=== PATIENT | female | born 1980 | race Caucasian/White ===

== ENCOUNTER 2022-11-13 13:02 | Outpatient (CLI) | payer OTHER, SELFPAY ==
--- NOTE | ~2022-11-13 | CT_ITS ---
EXAMINATION: CT abdomen pelvis w con INDICATION: Pelvic pain TECHNIQUE: Computed tomographic images of the abdomen and pelvis were obtained after the administrati on of 100 cc of Omnipaque 350 intravenous contrast. The dose-length product (DLP) was 388.82 mGy-cm. Automated exposure control and iterative reconstruction technique were employed. COMPARISON: None available FINDINGS: The lung bases are clear. The heart size is normal. Pectus excavatum is noted. The gallblad gunjan is surgically absent. There is mild enlargement of the common bile duct and central intrahepatic ducts which is likely due to post cholecystectomy state. The liver, spleen, pancreas, and adrenal gla nds are normal. The kidneys are unremarkable. No pathologically enlarged abdominal or pelvic lymph no kathie are identified. There is no free intraperitoneal gas or evidence of bowel obstruction. Cysts of t he ovaries, measuring up to 2.7 cm on the left, are within normal limits for a reproductive age femal e. There is a small amount of likely physiologic free fluid in the pelvis. There is mild lumbar spond ylosis at L5-S1. IMPRESSION: 1. No CT correlate for the patient's symptoms. Reviewed, dictated and finalized at location B. OGY PROFESSOR
--- NOTE | ~2022-11-13 | XR_ITS ---
EXAMINATION: XR sacroiliac joints min 3V INDICATION: Sacroiliitis TECHNIQUE: Three views of the sacroiliac joints are obtained. COMPARISON: None available FINDINGS: There is no abnormal sclerosis or erosion of the sacroiliac joints. Bone alignment is neyda l. There is no fracture. Contrast from earlier CT examination partially opacifies the urinary tract.. IMPRESSION: 1. Unremarkable sacroiliac joints. Reviewed, dictated and finalized at location B. AND POULTRY INSPECTOR
--- NOTE | ~2022-11-13 | XR_ITS ---
EXAMINATION: XR lumbar spine 2-3V DATE: 11/13/2022 13:59 INDICATION: Sacroiliitis and low back pain TECHNIQUE: Anteroposterior and lateral views of the lumbar spine, and cone-down lateral view of the l umbosacral junction were obtained. COMPARISON: None. FINDINGS: Bone alignment is normal. There is no fracture. The vertebral body heights and intervertebr al disc space heights are maintained. Small degenerative osteophytes project from the anterior endpla santosh of multiple vertebral bodies. There is mild facet joint osteoarthritis of the lower lumbar spine. Contrast from earlier CT partially opacifies the urinary tract. Cholecystectomy clips are noted. IMPRESSION: 1. Mild lumbar spondylosis without acute findings. Reviewed, dictated and finalized at location B. EMS CHECKOUT MECHANIC
== END 2022-11-13 13:03 ==
LOC: MICIMG 13:05
PROVIDERS: PCP Emergency Medicine; Visit Provider Emergency Medicine
DX: R10.2 Pelvic and perineal pain (principal); M47.896 Other spondylosis, lumbar region
CPT/HCPCS: 72100; 72202; 74177; Q9967

== ENCOUNTER 2023-05-02 04:27 | Day surgery (SDC) | payer OTHER, SELFPAY ==
[2023-04-18 12:34] VITALS: BMI 22.6
[2023-05-02 08:21] VITALS: BP 109/61; PULSE 72; RESP 20; TEMP 36.2; O2SAT 100
[2023-05-02] MEDS: LACTATED RINGERS 1,000 ML 150 ML IV CONT (08:42)
--- NOTE | 2023-05-02 08:53 | P.PNAN_ITS ---
Anes - Initial Pre Proc Eval Procedure: Operation Date: 05/02/23 09:30 Proposed Procedures p Colonoscopy - Pavan Quintanilla MD Date/Time: 05/02/23 08:53 Surgeon: Pavan Quintanilla MD Pre Op Diagnosis: Mixed IBS Patient Data Age: 42 Gender: F Height: 1.63 m Weight: 59.3 kg Last Vital Signs Temp 97.2 F L 05/02/23 08:21 Pulse 72 05/02/23 08:21 Resp 20 05/02/23 08:21 BP 109/61 05/02/23 08:21 Pulse Ox 100 05/02/23 08:21 O2 Del Method Room Air 05/02/23 08:21 Allergies Allergy/AdvReac Type Severity Reaction Status Date / Time thimerosal Allergy Other Verified 05/02/23 08:43 Home Medications Medication Instructions Recorded Confirmed Type alprazolam 0.5 mg tablet 0.5 mg PO BID PRN Anxiety 04/18/23 05/02/23 History bupropion HCl 150 mg 24 hr tablet, 150 mg PO QAM 04/18/23 05/02/23 History extended release dextroamphetamine-amphetamine 20 20 mg PO BID 04/18/23 05/02/23 History mg tablet duloxetine 60 mg capsule,delayed 60 mg PO DAILY 04/18/23 05/02/23 History release (Cymbalta) hydroxychloroquine 200 mg tablet 200 mg PO DAILY 04/18/23 05/02/23 History pregabalin 75 mg capsule 75 mg PO BID 04/18/23 05/02/23 History Patient hx anesthesia problems: none Family hx anesthesia problems: none Results Review: All pre-operative results and documents have been reviewed as part of the pre- operative evaluation. [facility] Social History Social History Smoking status: Never smoker Tobacco type: e-cigarettes/vaping Alcohol intake: current Substance use: former Substance use type: opiates Other substance usage details: Opiate abuse Age 25-Mid 30's Spiritual care concerns: No Anes - Eval Final PreProcedure Day of Procedure 05/02/23 08:53 Patient weight: normal Heart: regular rate and rhythm Lungs: clear to auscultation Airway: Mallampati scale class II Neurological: alert and oriented Last oral intake: >/= 8 hours ASA classification: II Emergent: no Anesthetic plan: proceed Anesthesia type and monitoring: general GIVS and standard monitoring Results Review: All pre-operative results and documents have been reviewed as part of the pre- operative evaluation. Informed Consent: The patient's anesthetic plan and its attendant risks and benefits were discussed with the patient/family/POA. Questions were solicited and answers provided to the satisfaction of the patient/family/POA.
--- NOTE | 2023-05-02 08:54 | PM.HPGS ---
History of Present Illness History of Present Illness Consent: Risks, benefits, and alternatives have been discussed and questions answered. Patient agrees to proceed with procedure. Chief complaint: Mixed IBS Narrative: Chantal Ferrell is a 42 year old female with alternating diarrhea constipation for years, recently diagnosed with SLE. Never had colonoscopy. Review of Systems Constitutional: Constitutional: Denies headache(s) and Denies weakness Eyes: Eyes: Denies blurry vision ENT: Reports Normal hearing present, Denies headache(s) and Denies neck pain Cardiovascular: Cardiovascular: Denies chest pain and Denies dyspnea Respiratory: Respiratory: Denies dyspnea Gastrointestinal: Gastrointestinal: Reports no additional gastrointestinal complaints Genitourinary: Genitourinary: Denies dysuria Musculoskeletal: Musculoskeletal: Denies neck pain Integumentary/Breasts: Skin/Breast: Denies dry skin Neurologic: Reports Normal hearing present, Denies headache(s) and Denies weakness Psychiatric: Psychiatric: Denies anxiety Endocrine: Endocrine: Denies change in body appearance Hematologic/Lymphatic: Hematologic/Lymphatic: Denies easy bleeding Allergic/Immunologic: Allergic/Immunologic: Denies urticaria PMFSH Past Medical History Medical History (Updated 05/02/23 @ 08:55 by Pavan Quintanilla MD) IBS (irritable bowel syndrome) SLE (systemic lupus erythematosus) Social History Social History Smoking status: Never smoker Tobacco type: e-cigarettes/vaping Alcohol intake: current Substance use: former Substance use type: opiates Other substance usage details: Opiate abuse Age 25-Mid 30's Spiritual care concerns: No Meds Home Medications and Allergies Home Medications Medication Instructions Recorded Confirmed Type alprazolam 0.5 mg tablet 0.5 mg PO BID PRN Anxiety 04/18/23 05/02/23 History bupropion HCl 150 mg 24 hr tablet, 150 mg PO QAM 04/18/23 05/02/23 History extended release dextroamphetamine-amphetamine 20 20 mg PO BID 04/18/23 05/02/23 History mg tablet duloxetine 60 mg capsule,delayed 60 mg PO DAILY 04/18/23 05/02/23 History release (Cymbalta) hydroxychloroquine 200 mg tablet 200 mg PO DAILY 04/18/23 05/02/23 History pregabalin 75 mg capsule 75 mg PO BID 04/18/23 05/02/23 History Allergies Allergy/AdvReac Type Severity Reaction Status Date / Time thimerosal Allergy Other Verified 05/02/23 08:43 Vital Signs Vital Signs - 24 hr 05/02/23 08:21 Temperature 97.2 F L Pulse Rate 72 Respiratory Rate 20 Blood Pressure 109/61 Pulse Oximetry 100 Oxygen Delivery Room Air Exam Const: General: comfortable and no acute distress HENMT: Face/Nose/Sinus: Normal nares present Eyes: General: appearance normal, both eyes and all related structures Neck: Neck: no JVD Resp: Auscultation: clear to auscultation bilaterally Cardio: Rate: regular rate Rhythm: regular rhythm GI: Inspection: non-distended GI Palp: Yes Soft to palpation Skin: General skin exam: normal color Neuro: General: gait normal Speech: normal speech Extrem: General: normal to inspection Psych: Mental Status: mental status grossly normal Assessment and Plan Assessment and plan (1) IBS (irritable bowel syndrome): Code(s): K58.9 - Irritable bowel syndrome without diarrhea Status: Acute Assessment and Plan: colonoscopy, consider random colon bx (2) SLE (systemic lupus erythematosus): Code(s): M32.9 - Systemic lupus erythematosus, unspecified Status: Acute
[2023-05-02 09:10] VITALS: BP 97/58; PULSE 73; RESP 16; O2SAT 98
[2023-05-02 09:20] VITALS: BP 95/60; PULSE 68; RESP 23; O2SAT 95
[2023-05-02 09:30] VITALS: BP 104/72; PULSE 68; RESP 16; O2SAT 100
== END 2023-05-02 09:34 | disposition home or self-care (01) ==
PROVIDERS: PCP Emergency Medicine; Visit Provider Internal Medicine Gastroenterology
PROC: 0DJD8ZZ Inspection of Lower Intestinal Tract, Via Natural or Artificial Opening Endoscopic (ICD-10-PCS; CPT 45378; principal; 2023-05-02 09:30)
DX: K58.2 Mixed irritable bowel syndrome (principal); K64.8 Other hemorrhoids; M32.9 Systemic lupus erythematosus, unspecified
CPT/HCPCS: 45380; 88305; J2704; J7120

== ENCOUNTER 2023-07-14 11:06 | Outpatient (CLI) | payer OTHER, SELFPAY ==
[2023-07-14 12:05] LABS: Hemoglobin 11.7 g/dL (12.0-15.0)
== END 2023-07-14 11:07 | disposition home or self-care (01) ==
PROVIDERS: PCP Emergency Medicine; Visit Provider Obstetrics & Gynecology
DX: N94.6 Dysmenorrhea, unspecified (principal); Z01.818 Encounter for other preprocedural examination
CPT/HCPCS: 36415; 85014; 85018; 86850; 86900; 86901

== ENCOUNTER 2023-07-16 01:32 | Day surgery (SDC) | payer OTHER, SELFPAY ==
[2023-07-10 16:43] VITALS: BMI 22.3
--- NOTE | 2023-07-10 16:51 | SUR.PREOP ---
Report to the Outpatient Waiting Room, entrance under the green pavilion located off [facility], at time 0800 on date 07/16/23. Planned Procedure Time: _1000_. Time changes happen often and if your time is changed the preop area will call you the afternoon before. - You and your visitor will be asked to self-screen and do not enter if you have any COVID symptoms. - A mask is optional within the hospital at this time. Patients may have clear liquids (water, carbonated beverages, clear teas, apple juice) until 3 hours prior to surgery with a maximum of 20 ounces. - No food from midnight until time of surgery before 0700 am - Infants may have breast milk until 4 hours before surgery, formula 6 hours prior to surgery. - Children will be allowed to drink immediately following surgery. If applicable, please bring a bottle or sippy cup to assist with drinking. Juice, water, soda, and popsicles are readily available. For infants on formula, please bring formula the day of surgery. Pacifiers are allowed. Take the following medications with a SIP of water the morning of surgery: __Cymbalta and Wellbutrin DO NOT STOP ANY OF YOUR OTHER PRESCRIPTION MEDICATIONS PRIOR TO SURGERY ?EXCEPT THE FOLLOWING Medications to discontinue per physician __hold all other morning meds the day of surgery Date to take last dose Please no make-up, nail azeri, hairspray, perfume, deodorant, or body powder the day of surgery. No jewelry (including any body piercings) or valuables the day of surgery, leave them at home. Please take a shower or bath the night before, or the morning of, surgery with an antibacterial soap. Wear comfortable, loose fitting clothing. Children are encouraged to wear pajamas. - Jewelry must be removed prior to entering the operating room. Rings and piercings that are not removed may be cut off. - The hospital will not accept responsibility for valuables. - Please leave all valuables, including medications, at home the day of surgery. If you are going home after surgery, a licensed driver/guide must drive you home. - NO public transportation without another adult if you receive anesthesia. - We recommend that an adult stay with you for 24 hours following discharge. - We also recommend that you do not drive, make important decision, drink alcoholic beverages, or take any drugs that were not prescribed by your health care provider for at least 24 hours after your discharge time. For Pediatric surgeries, we recommend two adults accompany the child home. Follow any additional instructions given to you from your surgeon. If you or anyone in your household have experienced Covid symptoms in the past week, please notify your surgeon or the nurse liaison at the phone number below for possible testing. Telephone instructions given to _patient__and asked if any additional questions and then verbalized understanding. Patient advised to call surgeon office or pre surgery nurse liaison [phone] if any additional questions.
--- NOTE | 2023-07-15 20:49 | P.PNAN_ITS ---
Anes - Initial Pre Proc Eval Procedure: Operation Date: 07/16/23 10:00 Proposed Procedures p Robotic Assisted Total Vaginal Hysterectomy with Bilateral Salpingectomy - Giuseppe Tenorio MD s Possible Cystocele Repair - Giuseppe Tenorio MD Date/Time: 07/15/23 20:49 Surgeon: Giuseppe Tenorio MD Pre Op Diagnosis: heavy exc bleeding, dyspareunia,dysmenorrhoea, Patient Data Age: 42 Gender: F Height: 1.63 m Weight: 58.97 kg Allergies Allergy/AdvReac Type Severity Reaction Status Date / Time thimerosal Allergy Other Verified 07/16/23 08:50 Home Medications Medication Instructions Recorded Confirmed Type alprazolam 0.5 mg tablet 0.5 mg PO BID PRN Anxiety 04/18/23 07/10/23 History bupropion HCl 150 mg 24 hr tablet, 150 mg PO QAM 04/18/23 07/10/23 History extended release dextroamphetamine-amphetamine 20 20 mg PO BID 04/18/23 07/10/23 History mg tablet duloxetine 60 mg capsule,delayed 60 mg PO DAILY 04/18/23 07/10/23 History release (Cymbalta) hydroxychloroquine 200 mg tablet 200 mg PO BID 04/18/23 07/10/23 History pregabalin 75 mg capsule 75 mg PO BID 04/18/23 07/10/23 History Patient hx anesthesia problems: none Family hx anesthesia problems: none Results Review: All pre-operative results and documents have been reviewed as part of the pre- operative evaluation. [facility] Past Medical History Medical History (Updated 07/15/23 @ 20:50 by Kameron Diaz DO) ADD (attention deficit disorder) Bipolar disorder Depression IBS (irritable bowel syndrome) SLE (systemic lupus erythematosus) Surgical History Surgical History (Updated 07/15/23 @ 20:50 by Kameron Diaz DO) History of tonsillectomy Social History Social History (Updated 07/16/23 @ 09:16 by Kameron Diaz DO) Smoking status: Never smoker Tobacco type: e-cigarettes/vaping Alcohol intake: former Substance use: current Substance use type: marijuana Other substance usage details: Opiate abuse Age 25-Mid 30's Last use: marijuana daily Living arrangements: with family Spiritual care concerns: No Anes - Eval Final PreProcedure Day of Procedure 07/15/23 20:49 Patient weight: normal Heart: regular rate and rhythm Lungs: clear to auscultation Airway: Mallampati scale class II Neurological: alert and oriented Last oral intake: >/= 8 hours ASA classification: III Emergent: no Anesthetic plan: proceed Anesthesia type and monitoring: general ETT and standard monitoring Results Review: All pre-operative results and documents have been reviewed as part of the pre- operative evaluation. Informed Consent: The patient's anesthetic plan and its attendant risks and benefits were discussed with the patient/family/POA. Questions were solicited and answers provided to the satisfaction of the patient/family/POA.
[2023-07-16] VITALS (12 sets, daily range): BP systolic 102–148; BP diastolic 57–83; PULSE 59–77; RESP 12–18; TEMP 36.2–36.8; O2SAT 99–100; BMI 21.8
[2023-07-16] MEDS: LACTATED RINGERS 1,000 ML 30 ML IV CONT ×2 (08:36→12:58)
[2023-07-16] MEDS: ACETAMINOPHEN 500 MG TABLET 1000 MG PO (08:36)
[2023-07-16] MEDS: KETOROLAC 15 MG/ML VIAL (*BKC) IV PUSH (08:37)
--- NOTE | 2023-07-16 10:00 | SUR.PREOP ---
1000- Notified patient and boyfriendSrinivas procedure start time will be delayed. Patient verbalized understanding and denying needs at this time.
--- NOTE | 2023-07-16 10:35 | PM.IMHP ---
H&P: HPI History of Present Illness Date/Time: 07/16/23 10:35 Chief Complaint: Here for hysterectomy. Narrative: 42 y/o with heavy, painful menses. She is here for definitive management with hysterectomy. Also, she often will Valsalva to empty her bladder fully. She has been referred for pelvic floor physical therapy. Review of Systems Review of Systems: All systems reviewed & are unremarkable except as noted in HPI and below PMFSH Past Medical History Medical History ADD (attention deficit disorder) Bipolar disorder Depression IBS (irritable bowel syndrome) SLE (systemic lupus erythematosus) Surgical History Surgical History History of delivery History of cholecystectomy History of tonsillectomy Social History Social History Smoking status: Never smoker Tobacco type: e-cigarettes/vaping Alcohol intake: former Substance use: current Substance use type: marijuana Other substance usage details: Opiate abuse Age 25-Mid 30's Last use: marijuana daily Living arrangements: with family Spiritual care concerns: No Meds Home Medications and Allergies Home Medications Medication Instructions Recorded Confirmed Type alprazolam 0.5 mg tablet 0.5 mg PO BID PRN Anxiety 04/18/23 07/10/23 History bupropion HCl 150 mg 24 hr tablet, 150 mg PO QAM 04/18/23 07/10/23 History extended release dextroamphetamine-amphetamine 20 20 mg PO BID 04/18/23 07/10/23 History mg tablet duloxetine 60 mg capsule,delayed 60 mg PO DAILY 04/18/23 07/10/23 History release (Cymbalta) hydroxychloroquine 200 mg tablet 200 mg PO BID 04/18/23 07/10/23 History pregabalin 75 mg capsule 75 mg PO BID 04/18/23 07/10/23 History Allergies Allergy/AdvReac Type Severity Reaction Status Date / Time thimerosal Allergy Other Verified 07/16/23 08:50 Vital Signs Vital Signs - 24 hr 07/16/23 09:00 Temperature 36.7 C Pulse Rate 72 Respiratory Rate 16 Blood Pressure 102/60 Pulse Oximetry 100 Oxygen Delivery Room Air Exam Const: Orientation/consciousness: patient oriented x3 Other: Well-developed, well-nourished female in no acute distress. Neck: Thyroid: thyroid normal Lymphatic: no lymphadenopathy noted (in neck, axilla or inguinal nodes) Resp: Effort & Inspection: normal respiratory effort Auscultation: clear to auscultation bilaterally Cardio: Rate: regular rate Rhythm: regular rhythm Heart sounds: S1 normal heart sound present and S2 normal heart sound present GI: Other: ABD: Soft, nontender, nondistended. No guarding or rebound tenderness. No hepatosplenomegaly. : General: Yes no CVA tenderness Other: External genitalia: normal female hair distribution, without lesion. Urethral meatus: no lesion, non prolapsed. Bladder: no mass, nontender Vagina: well-estrogenized, without lesion or discharge. There is a first degree cystocele and first degree uterine prolapse. No significant rectocele. Cervix: no lesion or discharge. Uterus: small, anteverted, freely mobile, nontender Adnexa: no mass or tenderness. Anus/perineum: no lesions, nontender Back/Spine/Pelvis: Back: no CVA tenderness Skin: General skin exam: normal color and no rashes or lesions noted Neuro: General: patient oriented x3 Extrem: Other: Extremities: nontender with no edema Psych: Mental Status: mental status grossly normal Affect: normal affect Assessment and Plan Assessment and plan (1) Menometrorrhagia: Code(s): N92.1 - Excessive and frequent menstruation with irregular cycle Status: Acute Assessment and Plan: A: Menometrorrhagia with dysmenorrhea, with a first degree cystocele. P: We have reviewed medical as well as surgical treatment options, and she prefers the latter. Specifically, I have
--- NOTE | 2023-07-16 10:42 | WPDHPUPDATE1 ---
History and Physical Update Update Date/Time: 07/16/23 10:42 History and Physical has been reviewed, including an updated exam of the patient. There are NO changes in the patient's condition. Risks, benefits, and alternatives have been discussed and questions answered. Patient agrees to proceed with procedure.
[2023-07-16] MEDS: ceFAZolin 2 GM/D5W 50 ML 2 GM/50 ML BAG IVPB (11:02)
--- NOTE | 2023-07-16 12:51 | W.PM.PROC2 ---
Procedure Note - Detailed Date of Procedure 07/16/23 Pre-op Diagnosis Dysmenorrhea Menometrorrhagia Post-op Diagnosis Same Procedure Performed Robotic assisted total vaginal hysterectomy with bilateral salpingectomies, right oophorectomy. Surgeon Giuseppe Tenorio MD Anesthesia General Findings Adhesions between bladder and anterior serosa of the uterus. Uterus otherwise normal-appearing. Bilateral ovaries, Fallopian tubes unremarkable. Vermiform appendix normal-appearing. Apparent endometriosis implants noted on the peritoneal surface of the posterior cul-de-sac, bilateral pelvic sidewalls. On vaginal exam a first degree uterine prolapse and cystocele were noted at the start of the procedure. After the hysterectomy, the vaginal cuff was well-supported, and the cystocele was not appreciated. Description of Procedure The patient was taken to the operating room where general endotracheal anesthesia was administered. She was prepared and draped in the usual sterile fashion in the dorsal lithotomy position. The bladder was drained with Lake catheter. The cervix was visualized and the anterior lip was grasped using a single-tooth tenaculum. The cervix was gently dilated using Hegar dilators. The CAITY 2 uterine manipulator was then placed and the tenaculum was removed. Gloves were changed and attention was turned to the abdomen. A supraumbilical skin incision was made with the scalpel. The Veress needle was advanced and pneumoperitoneum was administered using carbon dioxide gas. The bladeless trocar was then advanced. Intraperitoneal placement was confirmed using the laparoscope. Lateral ports and an political science research assistant port were all placed using bladeless trocars under direct laparoscopic visualization. She was placed in Trendelenburg position and the patient cart was docked. I assumed the console. The ureters were visualized bilaterally. The round ligament on the right was divided. The Fallopian tube was dissected off the ovary, and the uteroovarian ligament was divided. The broad ligament was divided, skeletonizing the uterine artery on the right. The bladder was reflected away. The left side was similarly dissected. Colpotomy was performed circumferentially. The specimen was removed and passed off to be sent to pathology. On inspection, the right ovary did not show satisfactory hemostasis, so the decision was made to remove it. The infundibulopelvic ligament was divided and the ovary was passed off the field. The vaginal cuff was reapproximated using 0 Vicryl in interrupted [id number] fashion. Endometriosis implants were cauterized. The pelvis was irrigated copiously using warmed normal saline. Rigorous hemostasis was assured. Vermiculation of the ureters bilaterally was observed. HemaDerm was applied to the vaginal cuff. The pedicles were inspected once again. The ports were then withdrawn and the gas was allowed to escape. The skin incisions were reapproximated using 4 0 Monocryl in interrupted subcuticular fashion. Dermaflex was applied externally. Attention was redirected to the vagina, where findings were as noted above. As a significant cystocele was not appreciated, anterior colporrhaphy was not undertaken. Sponge, lap, needle and instrument counts were correct. The patient was awakened and taken to the recovery room in stable condition. I was present and scrubbed through the entire procedure. Estimated Blood Loss 50 Drains Yes (Lake) Pathology Yes (Uterus, cervix, bilateral Fallopian tubes, right ovary) Complications None Condition Stable Disposition PACU
--- NOTE | 2023-07-16 13:00 | PM.DS ---
DS: Admitting Diagnosis Discharge Date 07/17/23 Admitting Diagnosis Menometrorrhagia Dysmenorrhea Pelvic organ prolapse DS: Discharge Diagnosis Discharge Diagnosis (1) Dysmenorrhea: Code(s): N94.6 - Dysmenorrhea, unspecified Status: Acute (2) Menometrorrhagia: Code(s): N92.1 - Excessive and frequent menstruation with irregular cycle Status: Acute (3) Pelvic prolapse: Code(s): N81.9 - Female genital prolapse, unspecified Status: Acute DS: Summary Hospital Course Hospital Course: She was admitted on the date of scheduled surgery. Please see the op note for details. She underwent robotic TVHBS with right oophorectomy. Postoperatively she did well and was able to go home on POD1. Time Spent with Patient Time attestation: Total time spent providing and/or coordinating discharge services: DS: Data Data Completed and Pending Pending studies at discharge: Pending at discharge 07/16/23 12:22 Surgical [PTH] Routine Discharge Plan Discharge Patient Disposition: Home, Self-Care Discharge Instructions: Nothing in the vagina for 6 weeks. Call or return if temperature above 100.4? F, increased abdominal pain, increased vaginal bleeding or any new problems. Patient Instructions: Laparoscopic Hysterectomy (DC), Pain Management After Surgery (DC) Stand Alone Forms: General Discharge Instructions Follow-up/Referrals: Giuseppe Tenorio MD [Physician] - 2 Weeks Discharge Medications: New tramadol-acetaminophen 37.5-325 mg tablet 1 tablet PO Q4-6H PRN (Reason: pain) 5 Days Qty: 30 0RF Continued alprazolam 0.5 mg Tablet 0.5 mg PO BID PRN (Reason: Anxiety) dextroamphetamine-amphetamine 20 mg tablet 20 mg PO BID hydroxychloroquine 200 mg Tablet 200 mg PO BID bupropion HCl 150 mg Tablet Extended Release 24 Hr 150 mg PO QAM duloxetine [Cymbalta] 60 mg Capsule,Delayed Release(Dr/Ec) 60 mg PO DAILY pregabalin 75 mg Capsule 75 mg PO BID
[2023-07-16] MEDS: fentaNYL CITRATE INJ (*CRX) 100 MCG/2 ML VIAL 25 MCG IV PUSH ×4 (13:14→13:24)
--- NOTE | 2023-07-16 14:51 | PC.NURSE ---
PT arrived on unit via bed accompanied by significant other and taken to room 279. PT introductions made and plan of care discussed per post op pari mutuel ticket cashier surgery, pain management, daily care activities. PT and significant other both recipients of such instructions and no barriers to learning identified at this time. PT received such instructions per one to one discussion and demonstrations. PT verbalized understanding of such care.
[2023-07-16] MEDS: DEXTROSE 5%/0.45% SOD CHL 1,000 ML 125 ML IV CONT (15:47)
[2023-07-16] MEDS: SIMETHICONE 80 MG TAB.CHEW PO ×2 (15:47→20:50)
[2023-07-16] MEDS: traMADol/ACETAMINOPHEN (*CRX) (ULTRACET) 37.5/325 MG TABLET 2 TAB PO ×2 (16:33→20:50)
[2023-07-16] MEDS: KETOROLAC 30 MG/ML VIAL (*BKC) IV PUSH (16:35)
[2023-07-16] MEDS: HYDROXYCHLOROQUINE SULFATE 200 MG TABLET PO (18:02)
[2023-07-16] MEDS: PREGABALIN (*CRX) 75 MG CAPSULE PO (18:02)
[2023-07-16] MEDS: DOCUSATE SODIUM 100 MG CAPSULE PO (18:02)
[2023-07-16] MEDS: ALPRAZolam (*CRX) 0.5 MG TABLET PO (20:50)
[2023-07-16] MEDS: ENOXAPARIN 40 MG/0.4 ML SYRINGE SUB-Q (20:50)
[2023-07-17] MEDS: traMADol/ACETAMINOPHEN (*CRX) (ULTRACET) 37.5/325 MG TABLET 2 TAB PO ×2 (04:17→09:28)
[2023-07-17] MEDS: IBUPROFEN 600 MG TABLET PO (04:17)
[2023-07-17 04:20] VITALS: BP 109/66; PULSE 69; RESP 18; TEMP 36.8; O2SAT 99
[2023-07-17 07:08] LABS: Basophils Absolute Auto 0.1 K/mm3 (0.0-0.1); Eosinophils Absolute Auto 0.2 K/mm3 (0-0.3); Hematocrit 35.2 % (37.0-47.0); Hemoglobin 11.4 g/dL (12.0-15.0); Immature Granulocyte Absolute 0.03 K/mm3 (0.00-0.031); Immature Granulocyte Percent A 0.3 % (0-0.5); Lymphocytes Absolute Auto 1.64 K/mm3 (0.9-3.2); Lymphocytes Percent Auto 18.3 % (18.3-44.2); Mean Corpuscular HGB Conc 32.4 g/dl (32-36); Mean Corpuscular Hemoglobin 31.1 pg (26-34); Mean Corpuscular Volume 96.2 fl (80-100); Mean Platelet Volume 9.4 fl (7.4-10.4); Monocytes Absolute Auto 0.8 K/mm3 (0.1-0.6); Monocytes Percent Auto 8.7 % (2.6-8.5); Neutrophils Absolute Auto 6.3 K/mm3 (1.3-6.7); Neutrophils Percent Auto 69.7 % (45.5-73.1); Platelet Count Result 337 k/mm3 (150-375); Red Blood Count 3.66 M/mm3 (4.2-5.4); Red Cell Distribution Width 12.8 % (11.5-14.5)
[2023-07-17 07:35] VITALS: BP 90/54; PULSE 67; RESP 16; TEMP 37.6; O2SAT 97
--- NOTE | 2023-07-17 09:00 | PC.NURSE ---
PT introductions made and plan of car discussed per post op storage specialist surgery, pain management, daily care activities and pending discharge to home. PT sole recipient of such instructions and no barriers to learning identified at this time. Pt received such instructions per one to one discussion and demonstrations. PT verbalized understanding of such care.
--- NOTE | 2023-07-17 09:00 | PM.GYNPNOP ---
SPECIALIZED LANGUAGE INSTRUCTOR - A/P Assessment and plan (1) Pelvic prolapse: Code(s): N81.9 - Female genital prolapse, unspecified Status: Acute Assessment and Plan: A: POD#1, s/p robotic assisted TVHBS with right oophorectomy, doing well. P: Home to f/u 2 weeks. (2) Dysmenorrhea: Code(s): N94.6 - Dysmenorrhea, unspecified Status: Acute (3) Menometrorrhagia: Code(s): N92.1 - Excessive and frequent menstruation with irregular cycle Status: Acute Postoperative Procedures: Procedures Operation Date: 07/16/23 10:00 Actual Procedure Side Surgeon p Robotic Assisted Total Vaginal Hysterectomy with Bilateral Salpingectomy, Right Oophorectomy Giuseppe Tenorio MD Time Spent With Patient Time with patient: less than 15 minutes SPECIALIZED LANGUAGE INSTRUCTOR- PN:Subj Post-Op Subjective Date/time seen: 07/17/23 09:00 Interval history: Pain OK. Tolerating diet. Voiding. Would like to go home. Exam Narrative: AVSS I/O OK ABD soft, nontender. Incisions c/d/i. EXT nontender SPECIALIZED LANGUAGE INSTRUCTOR - PN: Obj Data Vital Signs Vital Signs: Vital Signs - 24 hr 07/16/23 12:58 07/16/23 13:05 07/16/23 13:20 Temperature 36.2 C L Pulse Rate 77 74 69 Respiratory Rate 14 14 14 Blood Pressure 148/78 H 144/83 H 120/67 Pulse Oximetry 100 100 100 Oxygen Delivery Simple Face Mask Simple Face Mask Simple Face Mask Oxygen Flow Rate 8 8 8 07/16/23 13:30 07/16/23 13:45 07/16/23 14:00 Temperature Pulse Rate 75 68 71 Respiratory Rate 14 14 18 Blood Pressure 112/64 102/59 L 103/66 Pulse Oximetry 100 100 100 Oxygen Delivery Room Air Room Air Room Air Oxygen Flow Rate 07/16/23 14:15 07/16/23 14:30 07/16/23 15:30 Temperature 36.8 C Pulse Rate 64 67 59 L Respiratory Rate 12 12 16 Blood Pressure 108/71 103/68 109/57 L Pulse Oximetry 99 100 100 Oxygen Delivery Room Air Room Air Oxygen Flow Rate 07/16/23 15:30 07/16/23 19:30 07/16/23 19:30 Temperature 36.8 C Pulse Rate 59 L 72 Respiratory Rate 16 18 Blood Pressure 110/65 Pulse Oximetry 100 Oxygen Delivery Room Air Room Air Oxygen Flow Rate 07/16/23 23:38 07/16/23 23:38 07/17/23 04:20 Temperature 36.6 C 36.8 C Pulse Rate 61 69 Respiratory Rate 18 18 Blood Pressure 105/68 109/66 Pulse Oximetry 100 99 Oxygen Delivery Room Air Oxygen Flow Rate 07/17/23 04:20 Temperature Pulse Rate Respiratory Rate Blood Pressure Pulse Oximetry Oxygen Delivery Room Air Oxygen Flow Rate Intake/Output Intake/Output: Intake & Output 07/14/23 07/15/23 07/16/23 07/17/23 23:59 23:59 23:59 23:59 Intake Total 980 Output Total 1025 Balance -45 Meds/Results Medications: Active Medications Generic Name Dose Route Start Last Admin Trade Name Freq PRN Reason Stop Dose Admin Alprazolam 0.5 mg 07/16/23 14:54 07/16/23 20:50 Alprazolam (*Crx) 0.5 Mg Tablet PO 0.5 mg BID PRN Administration Anxiety Bupropion HCl 150 mg 07/17/23 09:00 Bupropion Hcl Xl (24 Hr) 150 Mg Tabcr PO QAM SHANTELL Docusate Sodium 100 mg 07/16/23 17:00 07/16/23 18:02 Docusate Sodium 100 Mg Capsule PO 100 mg BID SHANTELL Administration Duloxetine HCl 60 mg 07/17/23 09:00 Duloxetine Hcl 60 Mg Capsule.Dr PO DAILY SHANTELL Enoxaparin Sodium 40 mg 07/16/23 21:00 07/16/23 20:50 Enoxaparin 40 Mg/0.4 Ml Syringe SUB-Q 40 mg DAILY@2100 SHANTELL Administration Hydroxychloroquine Sulfate 200 mg 07/16/23 17:00 07/16/23 18:02 Hydroxychloroquine Sulfate 200 Mg Tablet PO 200 mg BID SHANTELL Administration Ibuprofen 600 mg 07/16/23 14:54 07/17/23 04:17 Ibuprofen 600 Mg Tablet PO 600 mg Q6H PRN Administration Cramping Ketorolac Tromethamine 30 mg 07/16/23 15:52 07/16/23 16:35 Ketorolac 30 Mg/Ml Vial (*Bkc) IV PUSH 30 mg Q6H PRN Administration Pain Rated 4-6 Metoclopramide HCl 10 mg 07/16/23 14:54 Metoclopramide Hcl Inj 10 Mg/2 Ml Vial IV PUSH Q6H PRN Nausea
[2023-07-17 09:25] VITALS: PULSE 67; RESP 16; O2SAT 97
[2023-07-17] MEDS: HYDROXYCHLOROQUINE SULFATE 200 MG TABLET PO (09:27)
[2023-07-17] MEDS: SIMETHICONE 80 MG TAB.CHEW PO (09:28)
[2023-07-17] MEDS: buPROPion HCL XL (24 HR) 150 MG TABCR PO (09:28)
[2023-07-17] MEDS: ALPRAZolam (*CRX) 0.5 MG TABLET PO (09:28)
[2023-07-17] MEDS: DULoxetine HCL 60 MG CAPSULE.DR PO (09:29)
[2023-07-17] MEDS: PREGABALIN (*CRX) 75 MG CAPSULE PO (09:29)
[2023-07-17] MEDS: DOCUSATE SODIUM 100 MG CAPSULE PO (09:29)
--- NOTE | 2023-07-17 10:45 | PC.NURSE ---
PT received discharge instructions per protocol and verbalized understanding of such care.
--- NOTE | 2023-07-17 10:57 | PC.NURSE ---
PT discharged to home ambulatory accompanied by spouse and taken to waiting car, Follow up appts confirmed
== END 2023-07-17 10:57 | disposition home or self-care (01) ==
LOC: ANHSURGERY 13:02 → ANHOB2 19:42
PROVIDERS: PCP Emergency Medicine; Visit Provider Obstetrics & Gynecology
PROC: (CPT 58552; principal; 2023-07-16 10:00)
DX: N80.329 Endometriosis of the posterior cul-de-sac, unspecified depth (principal); N80.353 Endometriosis of bilateral pelvic sidewall, unspecified depth; N80.00 Endometriosis of the uterus, unspecified; N80.201 Endometriosis of right fallopian tube, unspecified depth; N81.2 Incomplete uterovaginal prolapse; N73.6 Female pelvic peritoneal adhesions (postinfective); N92.1 Excessive and frequent menstruation with irregular cycle; N94.6 Dysmenorrhea, unspecified; N80.03 Adenomyosis of the uterus; F98.8 Other specified behavioral and emotional disorders with onset usually occurring in childhood and adolescence; M32.9 Systemic lupus erythematosus, unspecified; F31.9 Bipolar disorder, unspecified; F12.90 Cannabis use, unspecified, uncomplicated; Z87.891 Personal history of nicotine dependence
CPT/HCPCS: 58552; S2900; 36415; 85014; 85018; 85025; 86850; 86900; 86901; 88307; 99199; A9270; J0690; J1100; J1650; J1885; J2250; J2405; J2704; J3010; J7030; J7120

== ENCOUNTER 2024-02-18 12:06 | Emergency (ER) | payer SELFPAY ==
[2024-02-18 12:11] VITALS: BP 131/88; PULSE 100; RESP 16; TEMP 36.6; O2SAT 100
[2024-02-18 13:06] LABS: Basophils Absolute Auto 0.1 K/mm3 (0.0-0.1); Basophils Percent Auto 1.4 % (0.2-1.2); Eosinophils Absolute Auto 0.3 K/mm3 (0-0.3); Eosinophils Percent Auto 5.9 % (0-4.4); Hematocrit 37.6 % (37.0-47.0); Hemoglobin 12.9 g/dL (12.0-15.0); Immature Granulocyte Absolute 0.01 K/mm3 (0.00-0.031); Immature Granulocyte Percent A 0.2 % (0-0.5); Lymphocytes Absolute Auto 1.67 K/mm3 (0.9-3.2); Lymphocytes Percent Auto 33.7 % (18.3-44.2); Mean Corpuscular HGB Conc 34.3 g/dl (32-36); Mean Corpuscular Volume 90.4 fl (80-100); Mean Platelet Volume 9.2 fl (7.4-10.4); Monocytes Absolute Auto 0.5 K/mm3 (0.1-0.6); Monocytes Percent Auto 9.5 % (2.6-8.5); Neutrophils Absolute Auto 2.4 K/mm3 (1.3-6.7); Neutrophils Percent Auto 49.3 % (45.5-73.1); Platelet Count Result 336 k/mm3 (150-375); Red Blood Count 4.16 M/mm3 (4.2-5.4); Red Cell Distribution Width 11.9 % (11.5-14.5)
[2024-02-18 13:16] LABS: Alanine Aminotransferase 28 U/L (6-35); Albumin Level 4.3 g/dL (3.5-5.1); Alkaline Phosphatase 53 U/L (38-126); Anion Gap 4 mmol/L (4-12); Aspartate Amino Transferase 36 U/L (14-36); Bilirubin,Total 0.4 mg/dL (0.2-1.3); Blood Urea Nitrogen 12 mg/dL (7-17); Calcium 9.4 mg/dL (8.4-10.2); Carbon Dioxide 28 mmol/L (22-30); Chloride 104 mmol/L (98-107); Estimated CRCL calculation 87 ml/min; Estimated Glomerular Filt Rate > 60; Glucose 102 mg/dL (65-110); Lipase 238 U/L (23-300); Potassium 3.8 mmol/L (3.4-5.0); Sodium 136 mmol/L (137-145)
[2024-02-18] MEDS: SODIUM CHLORIDE 0.9% IV 1,000 ML 999 ML IV CONT (13:43)
[2024-02-18 13:45] VITALS: BP 111/79; PULSE 79; RESP 14; O2SAT 98
--- NOTE | 2024-02-18 13:46 | ED.GENADULT ---
HPI - General Adult General Chief complaint: Anxiety Stated complaint: multiple complaints Time Seen by Provider: 02/18/24 12:09 History of Present Illness HPI narrative: Patient 43 y/o female who presents to the ER with concerns for having a intestinal parasite. Her stools contained stringy substances that she thinks may be life assurance representative of a parasite. She reports 10 lb weight loss over last several months. Patient has a lot of anxiety at baseline but also has anxiety about this. She denies any fevers or chills or sweats. No abdominal pain. She has been scheduled for an outpatient stool study and she was supposed to do 1 today after they were closed last week when she provide does provide a sample. She then opted to come here instead. Related Data Home Medications Medication Instructions Recorded Confirmed alprazolam 0.5 mg tablet 0.5 mg PO BID PRN Anxiety 04/18/23 07/10/23 bupropion HCl 150 mg 24 hr tablet, 150 mg PO QAM 04/18/23 07/10/23 extended release dextroamphetamine-amphetamine 20 20 mg PO BID 04/18/23 07/10/23 mg tablet duloxetine 60 mg capsule,delayed 60 mg PO DAILY 04/18/23 07/10/23 release (Cymbalta) hydroxychloroquine 200 mg tablet 200 mg PO BID 04/18/23 07/10/23 pregabalin 75 mg capsule 75 mg PO BID 04/18/23 07/10/23 Allergies Allergy/AdvReac Type Severity Reaction Status Date / Time thimerosal Allergy Other Verified 07/16/23 08:50 Review of Systems Review of Systems: All systems reviewed & are unremarkable except as noted in HPI and below Constitutional: Constitutional: Reports no additional constitutional complaints ENT: Reports system reviewed and no additional complaints, except as documented Cardiovascular: Cardiovascular: Reports no additional cardiovascular complaints Respiratory: Respiratory: Reports no additional respiratory complaints Gastrointestinal: Gastrointestinal: Denies abdominal pain, Denies constipation, Denies diarrhea, Denies nausea and Denies vomiting Comments: stringy substances in stool Integumentary/Breasts: Skin/Breast: Reports system reviewed and no additional complaints, except as docu Psychiatric: Psychiatric: Reports anxiety and Denies depression PMFSH Past Medical History Medical History ADD (attention deficit disorder) Bipolar disorder Depression IBS (irritable bowel syndrome) SLE (systemic lupus erythematosus) Surgical History Surgical History History of delivery History of cholecystectomy History of tonsillectomy Social History Social History Smoking status: Never smoker Tobacco type: e-cigarettes/vaping Alcohol intake: former Substance use: current Substance use type: marijuana Other substance usage details: Opiate abuse Age 26-Mid 30's Last use: marijuana daily Living arrangements: with family Spiritual care concerns: No Exam Narrative: GENERAL: Anxious-appearing, well-nourished, and in no acute distress. HEAD: Normocephalic, atraumatic. ENT: Mucous membranes moist. NECK: Supple. CHEST: Clear to auscultation. No respiratory distress. HEART: Regular rate and rhythm. Normal peripheral pulses. ABDOMEN: Soft, nontender, nondistended. EXTREMITIES: Normal range of motion. No edema. SKIN: Warm, dry, no rash. NEURO: Alert and oriented x3. PSYCH: Patient is very anxious, unsure if these or delusions of parasites in her stool. Denies illicit drug use. Patient with pressured speech. Course Course Emergency Course: Unable to provided bowel movement. She does have outpatient orders for stool studies which she can do on her own. She will be discharged at this time with no unremarkable workup. Vital Signs Vital signs: Vital Signs Temperature 97.8 F 02/18/24 12:11 Pulse Rate 100 02/18/24 12:11 Respiratory Rate 16
[2024-02-18 13:52] LABS: Appearance Urine Clear (Clear); Bacteria Urine None Seen /hpf; Bilirubin Urine Negative (Negative); Blood Urine Non-Hemolyzed Trace (Negative); Color Urine Yellow (Yellow); Glucose Urine UA Negative (Negative); Ketones Urine Negative (Negative); Leukocyte Esterase Ur Negative LEU/UL (Negative); Nitrate Urine Negative (Negative); Non Pathogenic Casts 0-2; Protein Urine Negative (Negative); Specific Grav Ur 1.015 (1.001-1.035); Squamous Epithelial Cell Urine None Seen /hpf (Few); Urobilinogen Urine 0.2 mg/dL (<2.0); WBC Urine 0-5 /hpf (0-3)
[2024-02-18 13:54] LABS: Add Urine Microscopic? YES
[2024-02-18 14:45] VITALS: BP 102/63; PULSE 85; RESP 15; O2SAT 100
[2024-02-18 15:45] VITALS: BP 126/73; PULSE 96; RESP 12; O2SAT 99
[2024-02-18 16:53] VITALS: BP 115/68; PULSE 77; RESP 20; O2SAT 99
== END 2024-02-18 16:55 | disposition home or self-care (01) ==
PROVIDERS: Emergency Provider Emergency Medicine; PCP Emergency Medicine
DX: F41.9 Anxiety disorder, unspecified (principal); Z90.49 Acquired absence of other specified parts of digestive tract; M32.9 Systemic lupus erythematosus, unspecified; K58.9 Irritable bowel syndrome, unspecified; F98.8 Other specified behavioral and emotional disorders with onset usually occurring in childhood and adolescence; F31.9 Bipolar disorder, unspecified; F40.218 Other animal type phobia
CPT/HCPCS: 36415; 80053; 81001; 83690; 85025; 96360; 99283; J7030

== ENCOUNTER 2024-11-13 12:59 | Emergency (ER) | payer BC, SELFPAY ==
--- NOTE | ~2024-11-13 | CT_ITS ---
CT brain wo con Ordering provider: Jessica Hunter PA-C History: 44 years Female with . weakness . Comparison: None. Technique: CT of the head without contrast. Radiation reduction technique utilized. The dose-length product was 605.33 mGy-cm. Him FINDINGS: BRAIN PARENCHYMA AND CSF SPACES: No midline shift, mass effect or hemorrhage. The brain parenchyma a nd CSF spaces are otherwise normal. VISUALIZED PARANASAL SINUSES: Well aerated. MASTOIDS: Well aerated. BONES: The bones appear intact. SOFT TISSUES: Visualized nasopharynx is normal. Superficial soft tissues are normal. IMPRESSION: No acute intracranial findings. Reviewed, dictated and finalized at location A. [facility]
[2024-11-13 13:52] VITALS: BP 148/104; PULSE 118; RESP 20; TEMP 36.7; O2SAT 99
--- NOTE | 2024-11-13 16:42 | ED_ITS ---
HPI - Psych General Chief Complaint: Psychiatric Symptoms <Jessica Hunter PA-C - Last Filed: 11/14/24 16:31> Stated Complaint: NEEDS MENTAL HEALTH ASSISTANCE <Jessica Hunter PA-C - Last Filed: 11/14/24 16:31> Time Seen by Provider: 11/13/24 16:42 <Jessica Hunter PA-C - Last Filed: 11/14/24 16:31> Focused HPI: This is a 44 year old female that presents to the ER for psychiatric help. Reports she has been struggling to eat and drink. She is having difficulty swallowing. She has lost a lot of weight. Reports her committed suicide last June. She has history of anorexia. Reports she is weak. Reports she feels like she is slipping in and out of reality. Reports she is having severe panic attacks and anxiety. She is worried she may hurt herself. GENERAL: Anxious, tearful HEAD: Normocephalic, atraumatic. CHEST: Clear to auscultation. ?No respiratory distress. HEART: Regular rate and rhythm.? NEURO: ?Alert and oriented x3. Patient screened in triage and initial orders placed.? ?Additional care and disposition to be based upon?diagnostic testing and treatment. <Jessica Hunter PA-C - Last Filed: 11/14/24 16:31> History of Present Illness HPI Narrative: I agree with the above HPI 44-year-old female present to the emergency department for evaluation for increased anxiety depression and decreased appetite. Patient did recently start Lexapro yesterday. <Eldon Serrano MD - Last Filed: 11/14/24 06:52> Related Data Home Medications: Home Medications ?Medication ?Instructions ?Recorded ?Confirmed ?Last Taken ?Type alprazolam 0.5 mg tablet 0.5 mg PO BID PRN Anxiety 04/18/23 07/10/23 05/01/23 History bupropion HCl 150 mg 24 hr tablet, 150 mg PO QAM 04/18/23 07/10/23 05/01/23 History extended release dextroamphetamine-amphetamine 20 20 mg PO BID 04/18/23 07/10/23 05/01/23 History mg tablet duloxetine 60 mg capsule,delayed 60 mg PO DAILY 04/18/23 07/10/23 05/01/23 History release (Cymbalta) hydroxychloroquine 200 mg tablet 200 mg PO BID 04/18/23 07/10/23 05/01/23 History pregabalin 75 mg capsule 75 mg PO BID 04/18/23 07/10/23 05/01/23 History <Jessica Hunter PA-C - Last Filed: 11/14/24 16:31> Allergies/Adverse Reactions: Allergies Allergy/AdvReac Type Severity Reaction Status Date / Time thimerosal Allergy Other Verified 07/16/23 08:50 <Jessica Hunter PA-C - Last Filed: 11/14/24 16:31> Review of Systems 2 Review of Systems: All systems reviewed & are unremarkable except as noted in HPI and below <Eldon Serrano MD - Last Filed: 11/14/24 06:52> PMFSH Past Medical History Medical History: Medical History ADD (attention deficit disorder) Bipolar disorder Depression IBS (irritable bowel syndrome) SLE (systemic lupus erythematosus) <Jessica Hunter PA-C - Last Filed: 11/14/24 16:31> Surgical History Surgical History: Surgical History History of delivery History of cholecystectomy History of tonsillectomy <Jessica Hunter PA-C - Last Filed: 11/14/24 16:31> Social History Social History: Social History Smoking status: Never smoker Tobacco type: e-cigarettes/vaping Alcohol intake: former Substance use: current Substance use type: marijuana Other substance usage details: Opiate abuse Age 26-Mid 30's Last use: marijuana daily Living arrangements: with family Spiritual care concerns: No <Jessica Hunter PA-C - Last Filed: 11/14/24 16:31> Exam 2 Narrative: APPEARANCE: Well appearing, no pain, no distress, well-nourished. HEAD: normocephalic, atraumatic. EYES: PERRLA/EOMI, conjunctivae clear. NOSE: Normal no drainage EARS:TMS clear with good light reflex. THROAT: Pharynx clear, no exudate. NECK: Supple. No adenopathy, no masses. RESPIRATORY: Airway patent, respirations nonlabored. Clear to auscultation bilaterally, no rales, rhonchi, wheezing. CARDIOVASCULAR: Regular rate and rhythm without murmurs rubs or gallops. ABDOMINAL: Soft, nontender, nondistended, normal bowel sounds MUSCULOSKELETAL: Moves all extremities. Strength/ROM intact, No edema, No calf tenderness. NEURO: Alert. Cranial nerves II through XII intact. Good gait. Good coordination SKIN: Warm, dry. Normal Color Psych: Tearful affect <Eldon eSrrano MD - Last Filed: 11/14/24 06:52> Course Vital Signs Vital signs: Vital Signs Temperature 98.0 F 11/13/24 13:52 Pulse Rate 118 H 11/13/24 13:52 Respiratory Rate 20 11/13/24 13:52 Blood Pressure 148/104 H 11/13/24 13:52 Pulse Oximetry 99 11/13/24 13:52 Oxygen Delivery Room Air 11/13/24 13:52 Temperature 98.0 F 11/13/24 13:52 Pulse Rate 89 11/14/24 01:59 Respiratory Rate 17 11/14/24 01:59 Blood Pressure 134/96 H 11/14/24 01:59 Pulse Oximetry 98 11/14/24 01:59 Oxygen Delivery Room Air 11/13/24 13:52 <Jessica Hunter PA-C - Last Filed: 11/14/24 16:31> Vital Signs Temperature 98.0 F 11/13/24 13:52 Pulse Rate 118 H 11/13/24 13:52 Respiratory Rate 20 11/13/24 13:52 Blood Pressure 148/104 H 11/13/24 13:52 Pulse Oximetry 99 11/13/24 13:52 Oxygen Delivery Room Air 11/13/24 13:52 Temperature 98.0 F 11/13/24 13:52 Pulse Rate 89 11/14/24 01:59 Respiratory Rate 17 11/14/24 01:59 Blood Pressure 134/96 H 11/14/24 01:59 Pulse Oximetry 98 11/14/24 01:59 Oxygen Delivery Room Air 11/13/24 13:52 <Eldon Serrano MD - Last Filed: 11/14/24 06:52> MDM - Psych MDM Narrative Medical decision making narrative: 44-year-old female presented to the emergency department for evaluation for decreased appetite secondary to worsening depression. Patient states she does not have an appetite and does have some difficulty swallowing food patient is able to handle on secretions, patient does eat candy and does thank Dr. Biggs per family members. Patient states that she is not having any pain with swallowing but chest difficulty initiating the swallowing due to lack of appetite. Low concern for esophageal obstruction. Patient was afebrile with no leukocytosis and hemoglobin of 14.7. Patient has no electrolyte abnormalities with a creatinine of 0.74 glucose of 105, UA has no ketones. Patient was medically cleared and evaluated by the crisis counselors. Patient felt safe for discharge to home to have outpatient therapy. Patient was recommended to follow-up with her physicians as directed. Patient was also encouraged to have follow-up with GI. <Eldon Serrano MD - Last Filed: 11/14/24 06:52> Differential Diagnosis Differential diagnosis: Likely suicidal ideation, depression, drug-induced psychotic disorder, acute anxiety and other (Grieving) <Eldon Serrano MD - Last Filed: 11/14/24 06:52> Lab Data Attestation: I reviewed the patient's lab results. <Eldon Serrano MD - Last Filed: 11/14/24 06:52> Result diagrams: 11/13/24 18:21 11/13/24 18:21 <Jessica Hunter PA-C - Last Filed: 11/14/24 16:31> Labs: Lab Results 11/13/24 11/13/24 Range/Units 18:21 20:20 WBC 8.1 (4.5-10.0) K/mm3 RBC 4.69 (4.2-5.4) M/mm3 Hgb 14.7 (12.0-15.0) g/dL Hct 41.4 (37.0-47.0) % MCV 88.3 (80-100) fl MCH 31.3 (26-34) pg MCHC 35.5 (32-36) g/dl RDW 11.5 (11.5-14.5) % Plt Count 376 H (150-375) k/mm3 MPV 9.3 (7.4-10.4) fl Immature Gran % (Auto) 0.2 (0-0.5) % Neut % (Auto) 59.5 (45.5-73.1) % Lymph % (Auto) 29.2 (18.3-44.2) % [place] % (Auto) 7.1 (2.6-8.5) % Eos % (Auto) 2.9 (0-4.4) % Baso % (Auto) 1.1 (0.2-1.2) % Lymph # (Auto) 2.36 (0.9-3.2) K/mm3 [place] # (Auto) 0.6 (0.1-0.6) K/mm3 Eos # (Auto) 0.2 (0-0.3) K/mm3 Baso # (Auto) 0.1 (0.0-0.1) K/mm3 Abs Immat Gran (auto) 0.02 (0.00-0.031) K/mm3 Absolute Neuts (auto) 4.8 (1.3-6.7) K/mm3 Absolute Nucleated RBC 0.000 (0.0-0.012) K/mm3 Nucleated RBC % 0.0 (0.0-0.2) % Sodium 137 (137-145) mmol/L Potassium 3.7 (3.4-5.0) mmol/L Chloride 102 (98-107) mmol/L Carbon Dioxide 28 (22-30) mmol/L Anion Gap 7 (4-12) mmol/L BUN 15 (7-17) mg/dL Creatinine 0.74 (0.7-1.0) mg/dL Estim Creat Clear Calc 68 ml/min Estimated GFR > 60 (59 - ) Glucose 105 (65-110) mg/dL Calcium 9.4 (8.4-10.2) mg/dL Magnesium 2.1 (1.6-2.3) mg/dL Total Bilirubin 0.8 (0.2-1.3) mg/dL AST 27 (14-36) U/L ALT 23 (6-35) U/L Alkaline Phosphatase 48 (38-126) U/L Total Protein 7.0 (6.3-8.2) g/dL Albumin 4.5 (3.5-5.1) g/dL TSH (Reflex) 1.050 (0.465-4.68) uIU/mL Urine Color Yellow (Yellow) Urine Appearance Clear (Clear) Urine pH 5.5 (5.0-9.0) Ur Specific [place] 1.019 (1.001-1.035) Urine Protein 1+ H (Negative) mg/dL Urine Glucose (UA) Negative (Negative) mg/dL Urine Ketones Negative (Negative) mg/dL Ur Blood (Man) 1+ H (Negative) Urine Nitrate Negative (Negative) Urine Bilirubin Negative (Negative) Urine Urobilinogen 0.2 (<2.0) mg/dL Leukocyte Esterase Rfl Negative (Negative) DINORA/UL Urine RBC 0-2 (0-2) /hpf Urine WBC 6-10 H (0-3) /hpf Ur Squamous Epith Cells Occasional (Few) /hpf Urine Bacteria None seen /hpf Urine Casts 3-5 Urine Opiates Screen Negative (Negative) Urine Methadone Screen Negative (Negative) Ur Barbiturates Screen Negative (Negative) Ur Phencyclidine Scrn Negative (Negative) Ur Amphetamine Screen Positive A (Negative) U Benzodiazepines Scrn Positive A (Negative) Urine Cocaine Screen Negative (Negative) U Cannabinoids Screen Positive A (Negative) Ethyl Alcohol < 10 (<10) mg/dL Influenza A (RT-PCR) Negative Negative (Negative) Influenza B (RT-PCR) Negative Negative (Negative) RSV (RT-PCR) Negative Negative (Negative) SARS-CoV-2 RNA (RT-PCR) Negative Negative (Negative) <Jessica Hunter PA-C - Last Filed: 11/14/24 16:31> Lab Results 11/13/24 11/13/24 Range/Units 18:21 20:20 WBC 8.1 (4.5-10.0) K/mm3 RBC 4.69 (4.2-5.4) M/mm3 Hgb 14.7 (12.0-15.0) g/dL Hct 41.4 (37.0-47.0) % MCV 88.3 (80-100) fl MCH 31.3 (26-34) pg MCHC 35.5 (32-36) g/dl RDW 11.5 (11.5-14.5) % Plt Count 376 H (150-375) k/mm3 MPV 9.3 (7.4-10.4) fl Immature Gran % (Auto) 0.2 (0-0.5) % Neut % (Auto) 59.5 (45.5-73.1) % Lymph % (Auto) 29.2 (18.3-44.2) % [place] % (Auto) 7.1 (2.6-8.5) % Eos % (Auto) 2.9 (0-4.4) % Baso % (Auto) 1.1 (0.2-1.2) % Lymph # (Auto) 2.36 (0.9-3.2) K/mm3 [place] # (Auto) 0.6 (0.1-0.6) K/mm3 Eos # (Auto) 0.2 (0-0.3) K/mm3 Baso # (Auto) 0.1 (0.0-0.1) K/mm3 Abs Immat Gran (auto) 0.02 (0.00-0.031) K/mm3 Absolute Neuts (auto) 4.8 (1.3-6.7) K/mm3 Absolute Nucleated RBC 0.000 (0.0-0.012) K/mm3 Nucleated RBC % 0.0 (0.0-0.2) % Sodium 137 (137-145) mmol/L Potassium 3.7 (3.4-5.0) mmol/L Chloride 102 (98-107) mmol/L Carbon Dioxide 28 (22-30) mmol/L Anion Gap 7 (4-12) mmol/L BUN 15 (7-17) mg/dL Creatinine 0.74 (0.7-1.0) mg/dL Estim Creat Clear Calc 68 ml/min Estimated GFR > 60 (59 - ) Glucose 105 (65-110) mg/dL Calcium 9.4 (8.4-10.2) mg/dL Magnesium 2.1 (1.6-2.3) mg/dL Total Bilirubin 0.8 (0.2-1.3) mg/dL AST 27 (14-36) U/L ALT 23 (6-35) U/L Alkaline Phosphatase 48 (38-126) U/L Total Protein 7.0 (6.3-8.2) g/dL Albumin 4.5 (3.5-5.1) g/dL TSH (Reflex) 1.050 (0.465-4.68) uIU/mL Urine Color Yellow (Yellow) Urine Appearance Clear (Clear) Urine pH 5.5 (5.0-9.0) Ur Specific [place] 1.019 (1.001-1.035) Urine Protein 1+ H (Negative) mg/dL Urine Glucose (UA) Negative (Negative) mg/dL Urine Ketones Negative (Negative) mg/dL Ur Blood (Man) 1+ H (Negative) Urine Nitrate Negative (Negative) Urine Bilirubin Negative (Negative) Urine Urobilinogen 0.2 (<2.0) mg/dL Leukocyte Esterase Rfl Negative (Negative) DINOR[place]/UL Urine RBC 0-2 (0-2) /hpf Urine WBC 6-10 H (0-3) /hpf Ur Squamous Epith Cells Occasional (Few) /hpf Urine Bacteria None seen /hpf Urine Casts 3-5 Urine Opiates Screen Negative (Negative) Urine Methadone Screen Negative (Negative) Ur Barbiturates Screen Negative (Negative) Ur Phencyclidine Scrn Negative (Negative) Ur Amphetamine Screen Positive A (Negative) U Benzodiazepines Scrn Positive A (Negative) Urine Cocaine Screen Negative (Negative) U Cannabinoids Screen Positive A (Negative) Ethyl Alcohol < 10 (<10) mg/dL Influenza A (RT-PCR) Negative Negative (Negative) Influenza B (RT-PCR) Negative Negative (Negative) RSV (RT-PCR) Negative Negative (Negative) SARS-CoV-2 RNA (RT-PCR) Negative Negative (Negative) <Eldon Serrano MD - Last Filed: 11/14/24 06:52> Imaging Data Radiologist's impression: Impressions Head CT 11/13/24 17:39 IMPRESSION: No acute intracranial findings. <Eldon Serrano MD - Last Filed: 11/14/24 06:52> Critical Care Time Critical Care Time Critical Care Time: No <Jessica Hunter PA-C - Last Filed: 11/14/24 16:31> Discharge Plan Discharge Clinical Impression: Lack of appetite Depression Qualifiers: Depression Type: unspecified Qualified Code(s): F32.A - Depression, unspecified <Jessica Hunter PA-C - Last Filed: 11/14/24 16:31> Patient Disposition: Home, Self-Care <Jessica Hunter PA-C - Last Filed: 11/14/24 16:31> Condition: Stable <Jessica Hunter PA-C - Last Filed: 11/14/24 16:31> Instructions: Antibiotic Form, Depression (ED), Grief and Loss (ED) <Jessica Hunter PA-C - Last Filed: 11/14/24 16:31> Additional Instructions: Continue have close follow-up with psychiatric services as outpatient. I also recommend follow-up with GI. Have close follow-up with your primary care physician. If you have any worsening symptoms then please call or return to the emergency department. <Jessica Hunter PA-C - Last Filed: 11/14/24 16:31> Patient Language: Cymro <Jessica Hunter PA-C - Last Filed: 11/14/24 16:31> Prescriptions: No Action alprazolam 0.5 mg Tablet 0.5 mg PO BID PRN (Reason: Anxiety) dextroamphetamine-amphetamine 20 mg tablet 20 mg PO BID hydroxychloroquine 200 mg Tablet 200 mg PO BID bupropion HCl 150 mg Tablet Extended Release 24 Hr 150 mg PO QAM duloxetine [Cymbalta] 60 mg Capsule,Delayed Release(Dr/Ec) 60 mg PO DAILY pregabalin 75 mg Capsule 75 mg PO BID tramadol-acetaminophen 37.5-325 mg tablet 1 tablet PO Q4-6H PRN (Reason: pain) 5 Days Qty: 30 0RF <Jessica Hunter PA-C - Last Filed: 11/14/24 16:31> Follow-up/Referrals: Armani Mitchell MD [Primary Care Provider] - Pavan Quintanilla MD [Physician] - <Jessica Hunter PA-C - Last Filed: 11/14/24 16:31>
[2024-11-13 18:32] LABS: Basophils Absolute Auto 0.1 K/mm3 (0.0-0.1); Basophils Percent Auto 1.1 % (0.2-1.2); Eosinophils Absolute Auto 0.2 K/mm3 (0-0.3); Eosinophils Percent Auto 2.9 % (0-4.4); Hematocrit 41.4 % (37.0-47.0); Hemoglobin 14.7 g/dL (12.0-15.0); Immature Granulocyte Absolute 0.02 K/mm3 (0.00-0.031); Immature Granulocyte Percent A 0.2 % (0-0.5); Lymphocytes Absolute Auto 2.36 K/mm3 (0.9-3.2); Lymphocytes Percent Auto 29.2 % (18.3-44.2); Mean Corpuscular HGB Conc 35.5 g/dl (32-36); Mean Corpuscular Hemoglobin 31.3 pg (26-34); Mean Corpuscular Volume 88.3 fl (80-100); Mean Platelet Volume 9.3 fl (7.4-10.4); Monocytes Absolute Auto 0.6 K/mm3 (0.1-0.6); Monocytes Percent Auto 7.1 % (2.6-8.5); Neutrophils Absolute Auto 4.8 K/mm3 (1.3-6.7); Neutrophils Percent Auto 59.5 % (45.5-73.1); Platelet Count Result 376 k/mm3 (150-375); Red Blood Count 4.69 M/mm3 (4.2-5.4); Red Cell Distribution Width 11.5 % (11.5-14.5); White Blood Count 8.1 K/mm3 (4.5-10.0)
[2024-11-13 18:41] LABS: Ethanol < 10 mg/dL (<10)
[2024-11-13 18:42] LABS: Alanine Aminotransferase 23 U/L (6-35); Albumin Level 4.5 g/dL (3.5-5.1); Alkaline Phosphatase 48 U/L (38-126); Anion Gap 7 mmol/L (4-12); Aspartate Amino Transferase 27 U/L (14-36); Bilirubin,Total 0.8 mg/dL (0.2-1.3); Blood Urea Nitrogen 15 mg/dL (7-17); Calcium 9.4 mg/dL (8.4-10.2); Carbon Dioxide 28 mmol/L (22-30); Chloride 102 mmol/L (98-107); Estimated CRCL calculation 68 ml/min; Estimated Glomerular Filt Rate > 60; Glucose 105 mg/dL (65-110); Potassium 3.7 mmol/L (3.4-5.0); Sodium 137 mmol/L (137-145)
[2024-11-13 19:09] LABS: Influenza A QL RT-PCR Negative (Negative); Influenza B QL RT-PCR Negative (Negative); RSV RNA, RT-PCR Negative (Negative); SARS-CoV-2 RNA PCR Negative (Negative)
[2024-11-13 19:34] VITALS: BP 128/86; PULSE 86; RESP 14; O2SAT 100
--- NOTE | 2024-11-13 19:34 | ECG_ITS ---
Test Date: 2024-11-13 20:16:49 Measurements Intervals [place] Rate: 72 P: 82 LA: 210 QRS: 77 QRSD: 93 T: 56 QT: 377 QTc: 414 Interpretive Statements SINUS RHYTHM WITH FIRST DEGREE AV BLOCK POSSIBLE LEFT ATRIAL ENLARGEMENT [-0.1mV P-WAVE IN V1/V2] ABNORMAL ECG Electronically Signed On 11-14-2024 08:24:10 VOCAL TEACHER by Francois Trujillo M.D.
[2024-11-13 19:49] LABS: Magnesium 2.1 mg/dL (1.6-2.3)
[2024-11-13 20:34] LABS: Add Urine Microscopic? YES; Appearance Urine Clear (Clear); Bacteria Urine None Seen /hpf; Bilirubin Urine Negative (Negative); Blood Urine 1+ (Negative); Color Urine Yellow (Yellow); Glucose Urine UA Negative (Negative); Ketones Urine Negative (Negative); Leukocyte Esterase Ur Negative LEU/UL (Negative); Nitrate Urine Negative (Negative); Protein Urine 1+ mg/dL (Negative); RBC Urine 0-2 /hpf (0-2); Specific Grav Ur 1.019 (1.001-1.035); Squamous Epithelial Cell Urine Occasional /hpf (Few); Urobilinogen Urine 0.2 mg/dL (<2.0); pH Urine 5.5 (5.0-9.0)
[2024-11-13 20:48] LABS: Amphetamine Screen Urine Positive (Negative); Barbiturate Screen Urine Negative (Negative); Benzodiazepines Screen Urine Positive (Negative); Cannabinoid Screen Urine Positive (Negative); Cocaine Screen Urine Negative (Negative); Methadone Screen Urine Negative (Negative); Opiate Screen Urine Negative (Negative); Phencyclidine Screen Urine Negative (Negative)
[2024-11-13 21:09] LABS: Influenza A QL RT-PCR Negative (Negative); Influenza B QL RT-PCR Negative (Negative); RSV RNA, RT-PCR Negative (Negative); SARS-CoV-2 RNA PCR Negative (Negative)
--- NOTE | 2024-11-13 22:33 | PC.NURSE ---
pt walked out of her room to the exit saying if no one is going to help me then i'll just go home and . this RN walked the pt back to her room to deescalate the situation. this RN told the pt we have a call out to crisis to come and evaluate her. pt understood and cooperatively went back into her room waiting to be evaluated
--- NOTE | 2024-11-13 22:53 | PC.NURSE ---
called crisis again at this time for a consult on this pt with no answer
--- NOTE | 2024-11-13 23:06 | PC.NURSE ---
spoke to Felicity at this time for a consult. Felicity says she will send someone out soon
[2024-11-14 01:59] VITALS: BP 134/96; PULSE 89; RESP 17; O2SAT 98
== END 2024-11-14 01:59 | disposition home or self-care (01) ==
PROVIDERS: Physician Assistant; Emergency Provider Emergency Medicine; PCP Emergency Medicine
DX: R63.0 Anorexia (principal); Z68.1 Body mass index [BMI] 19.9 or less, adult; F41.8 Other specified anxiety disorders; M32.9 Systemic lupus erythematosus, unspecified; Z20.822 Contact with and (suspected) exposure to COVID-19
CPT/HCPCS: 36415; 70450; 80053; 80307; 81001; 82077; 83735; 84443; 85025; 87086; 87637; 93005; 99284

== ENCOUNTER 2025-03-11 00:25 | Day surgery (SDC) | payer OTHER, SELFPAY ==
[2025-03-09 12:51] VITALS: BMI 19.6
--- OUTSIDE RECORDS SUMMARY | 2025-03-11 00:28 | XMS_ITS | Clinical Summary ---
Author Organization [facility] Address [address] [place] [address] Care Team Providers Care Optometrist/Practice Owner Name Role Phone Michael Rider MD Primary Care Provider [phone] Source Comments [facility],non-owned Affiliates and Associated Physician Practices is amultiple site organization consisting of ambulatory clinics and hospital sitesin [place], [place], [place] and [place]. This disclosure is being madepursuant to the Care Everywhere program and may not contain all information available regarding this patient. Last updated 18.[facility] Allergies No known active allergies Medications * Be aware that medications may not be up to date on this document. Always verify current medications with the patient. norgestimate-eth inyl estradiol (SPRINTEC 28) 0.25-35 MG-MCG tablet Take 1 Tab by mouth once daily Active ALPRAZolam (XANAX XR PO) Active amphetamine-dext roamphetamine (ADDERALL) 20 MG tablet TK 1.5 TS PO QD 0 02/05/2018 Active buPROPion SR 12hr (WELLBUTRIN SR) 150 MG tablet Take 150 mg by mouth 2 times daily Active Active Problems No known active problems Social History Tobacco Use Types Packs/Day Years Used Date Smoking Tobacco: Never Smokeless Tobacco: Never Comments No Sex and Gender Information Value Date Recorded Sex Assigned at Not on file Legal Sex Female 2:[address] SQL DEVELOPER Gender Identity Not on file Sexual Orientation Not on file Last Filed Vital Signs Vital Sign Reading Time Taken Comments Blood Pressure 136/86 01/05/2020 5:[address] SQL DEVELOPER Pulse 108 01/05/2020 5:[address] SQL DEVELOPER Temperature 36.4 C (97.5 F) 01/05/2020 5:[address] SQL DEVELOPER Respiratory Rate 17 01/05/2020 5:[address] SQL DEVELOPER Oxygen Saturation 99% 01/05/2020 5:[address] SQL DEVELOPER Inhaled Oxygen Concentration - - Weight 63.5 kg (140 lb) 01/05/2020 5:[address] SQL DEVELOPER Height 165.1 cm (5' 5 ) 01/05/2020 5:[address] SQL DEVELOPER Body Mass Index 23.3 01/05/2020 5:[address] SQL DEVELOPER Plan of Treatment Health Maintenance Due Date Last Done Comments LIPID TESTING 1981 MAMMOGRAM 1981 PAP SMEAR 1981 HIV SCREENING 1996 HEPATITIS C SCREENING 09/16/1999 DTAP/TDAP/TD VACCINES (1 - Tdap) 2000 HEPATITIS B VACCINE (1 of 3 - 19+ 3-dose series) 2000 COVID-19 VACCINE (1 - 2023-2 5 season) 2024 DEPRESSION SCREENING 11/03/2024 INFLUENZA VACCINE (Season Ended) 2025 ZOSTER VACCINE (1 of 2) 2031 HIB VACCINE Aged Out No longer eligi ble based on patient's age to complete this topic HPV VACCINE Aged Out No longer eligi ble based on patient's age to complete this topic MENINGOCOCCAL (Group B) VACC INE SHARED DECISION-MAKING Aged Out No longer eligibl e based on patient's age to complete this topic MENINGOCOCCAL GROUPS A/C/Y/W VACCINE Aged Out No longer eligible b ased on patient's age to complete this topic PNEUMOCOCCAL VACCINE Aged Out No long er eligible based on patient's age to complete this topic Insurance [employer] Care Teams Optometrist/Practice Owner Relationship Specialty Start Date End Date Michael Rider MD [address] [place] [address] PCP - General Family Medicine 11/11/16
[2025-03-11 12:53] VITALS: BP 121/85; PULSE 84; RESP 19; TEMP 36.3; O2SAT 100
[2025-03-11] MEDS: LACTATED RINGERS 1,000 ML 150 ML IV CONT (13:02)
--- NOTE | 2025-03-11 13:25 | P.PNAN_ITS ---
Anes - Initial Pre Proc Eval Procedure: Operation Date: 03/11/25 14:15 Proposed Procedures p Esophagogastroduodenoscopy - Pavan Quintanilla MD Date/Time: 03/11/25 13:25 Surgeon: Pavan Quintanilla MD Pre Op Diagnosis: Abnormal weight loss Patient Data Age: 44 Gender: F Height: 1.63 m Weight: 54.1 kg Last Vital Signs Temp 36.3 C L 03/11/25 12:53 Pulse 84 03/11/25 12:53 Resp 19 03/11/25 12:53 BP 121/85 03/11/25 12:53 Pulse Ox 100 03/11/25 12:53 O2 Del Method Room Air 03/11/25 12:53 Allergies Allergy/AdvReac Type Severity Reaction Status Date / Time thimerosal Allergy Other Verified 03/11/25 12:53 Home Medications ?Medication ?Instructions ?Recorded ?Confirmed ?Type alprazolam 0.5 mg tablet 0.5 mg PO BID PRN Anxiety 04/18/23 03/11/25 History bupropion HCl 150 mg 24 hr tablet, 150 mg PO QAM 04/18/23 03/09/25 History extended release dextroamphetamine-amphetamine 20 20 mg PO BID 04/18/23 03/09/25 History mg tablet hydroxychloroquine 200 mg tablet 200 mg PO DAILY 04/18/23 03/09/25 History Patient hx anesthesia problems: none Family hx anesthesia problems: none Results Review: All pre-operative results and documents have been reviewed as part of the pre- operative evaluation. [facility] Past Medical History Medical History Weight loss Nausea Depression ADD (attention deficit disorder) Bipolar disorder SLE (systemic lupus erythematosus) IBS (irritable bowel syndrome) Surgical History Surgical History History of cholecystectomy History of delivery History of tonsillectomy Social History Social History Smoking status: Current every day smoker Tobacco type: e-cigarettes/vaping Alcohol intake: former Substance use: current Substance use type: marijuana Other substance usage details: Edibles and smokes Last use: marijuana daily Living arrangements: alone Spiritual care concerns: No Anes - Eval Final PreProcedure Day of Procedure 03/11/25 13:25 Patient weight: normal Heart: regular rate and rhythm Lungs: clear to auscultation Airway: Mallampati scale class II Neurological: alert and oriented Last oral intake: >/= 8 hours ASA classification: III Emergent: no Anesthetic plan: proceed Anesthesia type and monitoring: general GIVS and standard monitoring Results Review: All pre-operative results and documents have been reviewed as part of the pre- operative evaluation. Informed Consent: The patient's anesthetic plan and its attendant risks and benefits were discussed with the patient/family/POA. Questions were solicited and answers provided to the satisfaction of the patient/family/POA.
--- NOTE | 2025-03-11 13:54 | PM.HPGS ---
History of Present Illness History of Present Illness Consent: Risks, benefits, and alternatives have been discussed and questions answered. Patient agrees to proceed with procedure. Chief complaint: Abnormal weight loss Narrative: Chantal Farrell is a 44 year old female here for EGD, weight loss, had colonoscopy 2022 Review of Systems Review of Systems: All systems reviewed & are unremarkable except as noted in HPI and below PMFSH Past Medical History Medical History Weight loss Nausea Depression ADD (attention deficit disorder) Bipolar disorder SLE (systemic lupus erythematosus) IBS (irritable bowel syndrome) Surgical History Surgical History History of cholecystectomy History of delivery History of tonsillectomy Social History Social History Smoking status: Current every day smoker Tobacco type: e-cigarettes/vaping Alcohol intake: former Substance use: current Substance use type: marijuana Other substance usage details: Edibles and smokes Last use: marijuana daily Living arrangements: alone Spiritual care concerns: No Meds Home Medications and Allergies Home Medications ?Medication ?Instructions ?Recorded ?Confirmed ?Type alprazolam 0.5 mg tablet 0.5 mg PO BID PRN Anxiety 04/18/23 03/11/25 History bupropion HCl 150 mg 24 hr tablet, 150 mg PO QAM 04/18/23 03/09/25 History extended release dextroamphetamine-amphetamine 20 20 mg PO BID 04/18/23 03/09/25 History mg tablet hydroxychloroquine 200 mg tablet 200 mg PO DAILY 04/18/23 03/09/25 History Allergies Allergy/AdvReac Type Severity Reaction Status Date / Time thimerosal Allergy Other Verified 03/11/25 12:53 Vital Signs Vital Signs - 24 hr 03/11/25 12:53 Temperature 97.3 F L Pulse Rate 84 Respiratory Rate 19 Blood Pressure 121/85 Pulse Oximetry 100 Oxygen Delivery Room Air Exam Const: General: comfortable and no acute distress HENMT: Face/Nose/Sinus: Normal nares present Eyes: General: appearance normal, both eyes and all related structures Neck: Neck: no JVD Resp: Auscultation: clear to auscultation bilaterally Cardio: Rate: regular rate Rhythm: regular rhythm GI: Inspection: non-distended GI Palp: Yes Soft to palpation Skin: General skin exam: normal color Neuro: Speech: normal speech Extrem: General: normal to inspection Psych: Mental Status: mental status grossly normal Assessment and Plan Assessment and plan (1) Weight loss: Code(s): R63.4 - Abnormal weight loss Status: Acute Assessment and Plan: egd with bx (2) IBS (irritable bowel syndrome): Code(s): K58.9 - Irritable bowel syndrome, unspecified Status: Acute
[2025-03-11 14:04] VITALS: BP 100/60; PULSE 74; RESP 17; O2SAT 100
[2025-03-11 14:14] VITALS: BP 105/65; PULSE 85; RESP 22; O2SAT 100
[2025-03-11 14:24] VITALS: BP 110/55; PULSE 80; RESP 22; O2SAT 100
== END 2025-03-11 14:27 | disposition home or self-care (01) ==
PROVIDERS: PCP Emergency Medicine; Referring Provider Internal Medicine Gastroenterology; Visit Provider Internal Medicine Gastroenterology
PROC: 0DJ08ZZ Inspection of Upper Intestinal Tract, Via Natural or Artificial Opening Endoscopic (ICD-10-PCS; CPT 43239; principal; 2025-03-11 14:15)
DX: K58.9 Irritable bowel syndrome, unspecified (principal); F98.8 Other specified behavioral and emotional disorders with onset usually occurring in childhood and adolescence; F31.9 Bipolar disorder, unspecified; L93.0 Discoid lupus erythematosus; F17.290 Nicotine dependence, other tobacco product, uncomplicated; F12.90 Cannabis use, unspecified, uncomplicated; Z98.890 Other specified postprocedural states; Z90.49 Acquired absence of other specified parts of digestive tract
CPT/HCPCS: 43239; 88305; J2003; J2704; J7120

== ENCOUNTER 2025-03-21 09:57 | Outpatient (CLI) | payer OTHER, SELFPAY ==
--- OUTSIDE RECORDS SUMMARY | 2025-03-21 10:32 | XMS_ITS ---
Author Organization [facility] Address [address] [place] [address] Care Team Providers Care Traveling Freight Agent Name Role Phone Armani Mitchell MD Primary Care Provider Chanda De La Fuente [phone] Allergies Allergen (clinical drug ingredient) Drug/Non Drug Allergy documented on EMR Reaction Allergy Type Onset Date Status Thimerosal Unknown Drug Allergy 03/05/2023 Activ e REASON FOR VISIT follow up, connective tissue disease Medications Medication SIG (Take, Route, Frequency, Duration) Notes Start Date End Date Status buPROPion HCl ER (XL) 150 MG take 1 tablet (150 mg) by oral route once daily Oral 1 Active Hydroxychloroquine Sulfate 200 MG 1 Orally twice a day for 30 days Active amphetamine 1.25 mg/mL take 20 milliliters (25 mg) by oral route once daily in the morning oral 1 *Reorder from [employer] for eRx and Interaction Alerts* Active ALPRAZolam 0.5 MG take 1 tablet (0.5 mg) by oral route 3 times per day Oral 3 Active Pregabalin 75 mg take 1 capsule (75 mg) by oral route 2 times per day oral 2 Active DULoxetine HCl 60 MG take 1 capsule (60 mg) by oral route once daily Oral 1 Active Encounters Encounter Location Date Provider Diagnosis [facility] [address] [place] [address] 04/27/2024 Chanda Markham 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 ; Raynaud's phenomenon without gangrene I73.00 ; High risk medication use Z79.899 and Lumbar back pain M54.50 Assessments Encounter Date Diagnosis (ICD Code) Assessment Notes Treatment Notes Treatment Clinical Notes Section Notes 04/27/2024 Undifferentiated connective tissue disease (ICD-10 - M35.9) symptomatic, increase plaquenil to 400mg/day, continue cymbalta, consider restarting lyrica, return in 3 to 4 months 04/27/2024 Raynaud's phenomenon without gangrene (ICD-10 - I73.00) symptomatic, increase plaquenil to 400mg/day, continue cymbalta, consider restarting lyrica, return in 3 to 4 months 04/27/2024 High risk medication use (ICD-10 - Z79.899) symptomatic, increase plaquenil to 400mg/day, continue cymbalta, consider restarting lyrica, return in 3 to 4 months 04/27/2024 Lumbar back pain (ICD-10 - M54.50) symptomatic, increase plaquenil to 400mg/day, continue cymbalta, consider restarting lyrica, return in 3 to 4 months Plan Of Treatment Medication Medication Name Sig Start Date Stop Date Notes Hydroxychloroquine Sulfate 200 MG 1 Oral ly twice a day for 30 days Next Appt Details Follow Up: 3 Months, Reason: Progress Notes * Chantal YODERDOB:1980 (43 yo F)Acc No.[id number]:04/27/2024 Progress Notes Patient: Chantal GUARDADO Provider: Willis MAKRHAM MD :1980 A ge:43 Y S ex:Female Date:04/27/2024 Address:[address] [place] [address] Pcp:Armani Mitchell MD Subjective: * Chief Complaints: * F ollow upConnective tissue disease * HPI: G eneral Follow up: on plaquenil 200mg/day, on Cymbalta 60mg/day, needs refill, stopped lyrica on her own, has pain in the R arm, R knee hurting too, had labs done (including BLANCHE) a couple of weeks ago, results pending failed mobic flu like symptoms since 09/2023. She has had pain in the knees since her 20's. Feet turn purple in the bathtub. Knees looked purple at times too. She took steroids in early March 2023. Joint pain did get better. X-rays of right hip and SI joints were normal per patient. 03/10/2023, lupus anticoagulant (-), ESR, CRP and CK normal, UA: 1+ blood, RBC 11- 20, WBC 6-10, leukocyte esterase 2+01/30/2023, BLANCHE 1:320 (homogeneous), anti-DNA/chromatin/SM/SILK SCREEN PAINTER/SSA/SSB/SCL70 (-), C3 and C4 normal, RF/CCP (-), ACL (-), B2GP1 Abs (-), CBC normal except for platelets of 407, B21 631, TPO (-) ROS: no oral ulcers, ?nasal ulcers, +dry mouth, no dry eyes, +rashes on neck and chest at times, +facial redness, no photosensitivity, +hair loss, +Raynaud's aunt: connective tissue disease. * ROS: G eneral / Constitutional: Patient denies f colette, chills. P atient complains of fatigue. M usculoskeletal: Patient complains of s ee HPI. S kin: Patient denies r wan. * Medical History: * Surgical History: C holecstectomy; 2023-03-05 * Hospitalization/Major Diagno stic Procedure: * Family History: M igrated Family History: Non-contributory . * Social History: M igrated Social History: M igrated Social History: :: Exercises occasionally , Marital Status :: , Substance Use :: Alcohol :: Never:: Quantity :: 0-2 per day , Substance Use :: Tobacco :: Never. * Medications: T akingamphetamine 1.25 mg/mL suspen, IR - ER, biphasic 24hr take 20 milliliters (25 mg) by oral route once daily in the morning oral 1 , Notes to Pharmacist: *Reorder from [employer] for eRx and Interaction Alerts*buPROPion HCl ER (XL) 150 MG Tablet Extended Release 24 Hour take 1 tablet (150 mg) by oral route once daily Oral 1 Pregabalin 75 mg capsule take 1 capsule (75 mg) by oral route 2 times per day oral 2 DULoxetine HCl 60 MG Capsule Delayed Release Particles take 1 capsule (60 mg) by oral route once daily Oral 1 ALPRAZolam 0.5 MG Tablet take 1 tablet (0.5 mg) by oral route 3 times per day Oral 3 Hydroxychloroquine Sulfate 200 MG Tablet as directed Orally Taking amphetamine 1.25 mg/mL suspen, IR - ER, biphasic 24hr take 20 milliliters (25 mg) by oral route once daily in the morning oral 1 , Notes to Pharmacist: *Reorder from [facility] for eRx and Interaction Alerts*Taking buPROPion HCl ER (XL) 150 MG Tablet Extended Release 24 Hour take 1 tablet (150 mg) by oral route once daily Oral 1 Taking Pregabalin 75 mg capsule take 1 capsule (75 mg) by oral route 2 times per day oral 2 Taking DULoxetine HCl 60 MG Capsule Delayed Release Particles take 1 capsule (60 mg) by oral route once daily Oral 1 Taking ALPRAZolam 0.5 MG Tablet take 1 tablet (0.5 mg) by oral route 3 times per day Oral 3 Taking Hydroxychloroquine Sulfate 200 MG Tablet as directed Orally * Allergies: T himerosal: Allergy - Onset Date 03/05/2023no[Allergies Verified] Objective: * Vitals: * Examination: G eneral Examination: General appearance: a lert, well-nourished and in no acute distress. Head: n ormocephalic, atraumatic. Eyes: n ormal. Skin: n o rash. Lungs: r espiratory effort normal. N eurology: Speech: n ormal. P sychiatry: Affect / mood: a ppropriate. R heumatology: J OINT EXAM: +pain in R shoulder with abduction, R knee tender, R 5th MTP tender. Assessment: * Assessment: 1. U ndifferentiated connective tissue disease - M35.9 (Primary) 2 . R aynaud's phenomenon without gangrene - I73.00 3 . H igh risk medication use - Z79.899 4 . L umbar back pain - M54.50 symptomatic, increase plaque nil to 400mg/day, continue cymbalta, consider restarting lyrica, return in 3 to 4 months. Plan: * Treatment: * Procedure Codes: * Follow Up: 3 Months * Billing Information: * Visit Code: 04433 Office Visit, Est Pt., Level 4. * Procedure Codes: * Sign off status: Completed true * Provider: Willis MARKHAM MD Date: 0 04/27/2024 Generated for [employer]/eTransmitting on: 0 03/21/2025 10:32 AM CDT History and Physical Notes * HPI (History of Present Illness) Category Sub-Category Detail Notes Category Not es General Follow up on plaquenil 200mg/day, on Cymbalta 60mg/day, needs refill, stopped lyrica on her own, has pain in the R arm, R knee hurting too, had labs done (including BLANCHE) a couple of weeks ago, results pending failed mobic flu like symptoms since 09/2023. She has had pain in the knees since her 's. Feet turn purple in the bathtub. Knees looked purple at times too. She took steroids in early March 2023. Joint pain did get better. X-rays of right hip and SI joints were normal per patient. 03/10/2023, lupus anticoagulant (-), ESR, CRP and CK normal, UA: 1+ blood, RBC 11-20, WBC 6-10, leukocyte esterase 2+01/30/2023, BLANCHE 1:320 (homogeneous), anti-DNA/chromatin/SM/SILK SCREEN PAINTER/SSA/SS B/SCL70 (-), C3 and C4 normal, RF/CCP (-), ACL (-), B2GP1 Abs (-), CBC normal except for platelets of 407, B21 631, TPO (-) ROS: no oral ulcers, ?nasal ulcers, +dry mouth, no dry eyes, +rashes on neck and chest at times, +facial redness, no photosensitivity, +hair loss, +Raynaud's aunt: connective tissue disease Examination Category Sub-Category Detail Notes Category Not es Rheumatology JOINT EXAM: +pain in R shoulder with abduction, R knee tender, R 5th MTP tender Neurology Speech: normal Psychiatry Affect / mood: appropriate General Examination General appearance: alert, w ell-nourished and in no acute distress Head: normocephalic, atrau matic Eyes: normal Lungs: respiratory effort n ormal Skin: no rash
--- OUTSIDE RECORDS SUMMARY | 2025-03-21 10:32 | XMS_ITS ---
Author Organization [facility] Address [address], [place] [address] Care Team Providers Care Bike Mechanic Name Role Phone Armani Mitchell MD Primary Care Provider Chanda De La Fuente [phone] Allergies Allergen (clinical drug ingredient) Drug/Non Drug Allergy documented on EMR Reaction Allergy Type Onset Date Status Thimerosal Unknown Drug Allergy 03/05/2023 Activ e REASON FOR VISIT Refills Medications Medication SIG (Take, Route, Frequency, Duration) Notes Start Date End Date Status Hydroxychloroquine Sulfate 200 MG 1 tablet Orally once a day for 90 days 09/09/2023 01/11/2024 Active Encounters Encounter Location Date Provider Diagnosis [facility] [address] [facility] [facility], [place] [address] 10/13/2023 Chanda Brown 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 Assessments Encounter Date Diagnosis (ICD Code) Assessment Notes Treatment Notes Treatment Clinical Notes Section Notes 10/13/2023 Undifferentiated connective tissue disease (ICD-10 - M35.9) Plan Of Treatment Medication Medication Name Sig Start Date Stop Date Notes Hydroxychloroquine Sulfate 200 MG 1 tabl et Orally once a day for 90 days 09/09/2023 01/11/2024 Progress Notes * Chantal LIUDOB:1980 ([age] yo F)Acc No.[id number]:10/13/2023 Patient: Chantal MORIN :1980 A ge:43 Y S ex:Female Address:[address] [place] [address], [address] * Refills Refill Hydroxychloroquine Sulfate Tablet, 200 MG, Orally, 90, 1 tablet, once a day, 90 days, Refills=0 Subjective: * Chief Complaints: * R efills * Medical History: * Surgical History: * Hospitalization/Major Diagno stic Procedure: * Medications: * Allergies: T himerosal: Allergy - Onset Date 03/05/2023no[Allergies Verified] Objective: * Vitals: * Physical Examination: Assessment: * Assessment: 1. U ndifferentiated connective tissue disease - M35.9 Plan: * Treatment: * Procedure Codes: * true * Date: Generated for Gavin prescott/[employer]/Fidelina on: 0 03/21/2025 10:32 AM CDT
--- OUTSIDE RECORDS SUMMARY | 2025-03-21 10:32 | XMS_ITS | Patient Health Record ---
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 dealing with conflict with her 's family, which is exacerbating her emotional distress. Plan: a. Encourage the patient to continue attending therapy sessions to process her grief and develop coping strategies. b. Recommend the patient to attend support groups, such as grief and loss groups or Al-Anon meetings, to build a network of support. c. Encourage the patient to lean on her friends and family for support during this difficult time. 2. Depression and anxiety: - The patient has a history of depression and anxiety, which are likely exacerbated by her current situation. Plan: a. Monitor the patient's mental health closely during therapy sessions. b. Consider follow up with a psychiatrist for medication management if symptoms worsen or do not improve with therapy alone. 3. Adjustment and life transition: - The patient is facing significant life changes, including selling her home, managing her 's estate, and navigating her relationships with her 's family. Plan: a. Encourage the patient to break down tasks into smaller, manageable steps and to seek help from her support system when needed. b. Discuss healthy coping strategies for managing stress and anxiety during this transition period. 4. Relationship issues: - The patient is experiencing conflict with her 's family, which is causing additional emotional distress. Plan: a. Encourage the patient to set boundaries with her 's family and to prioritize her own well-being. b. Explore the possibility of family therapy or mediation to address and resolve conflicts, if the patient is open to it. 06/29/2024 Major depressive disorder, recurrent severe without psychotic features (ICD-10 - F33.2) 1. Grief and bereavement: - Patient is experiencing intense grief due to the recent of her and past losses. - Plan: Encourage patient to continue attending counseling sessions and consider joining a grief support group. Monitor patient's progress in coping with grief and adjust treatment plan as needed. 2. Anxiety and sleep disturbance: - Patient reports missing her Xanax prescription and experiencing poor sleep and increased anxiety. - Plan: Encourage patient to maintain a consistent sleep schedule. Monitor patient's anxiety levels and sleep quality during follow-up appointments. 3. Depression: - Patient expresses concerns about her recurring severe depression, especially with winter approaching. - Plan: Monitor patient's mood and depressive symptoms during counseling sessions. Consider adjusting treatment plan or referring to a psychiatrist for medication management if symptoms worsen. 4. Emotional regulation and self-control: - Patient reports difficulty controlling emotional outbursts and feeling embarrassed about her lack of self-control. - Plan: Continue to address emotional regulation strategies in counseling sessions, focusing on cognitive-behaviora l techniques and mindfulness practices. 5. Alcohol use: - Patient has quit drinking and is attending meetings to maintain sobriety. - Plan: Encourage patient to continue attending meetings and seeking support for her sobriety. Monitor patient's progress in maintaining sobriety during follow-up appointments. 6. Lupus management: - Patient is trying to keep her lupus under control and avoid stress. - Plan: Encourage patient to follow up with her primary care doctor and specialists as needed. Monitor patient's lupus symptoms and stress levels during counseling sessions. 7. Post-traumatic stress disorder (PTSD): - Patient has an appointment for EMDR therapy. - Plan: Encourage patient to attend EMDR therapy sessions and monitor progress in addressing PTSD symptoms. Consider incorporating additional trauma-focused interventions in counseling sessions as needed. 8. Relationship and self-esteem issues: - Patient expresses concerns about her past relationships and her ability to choose healthy partners. - Plan: Continue to address relationship patterns and self-esteem in counseling sessions, focusing on building self-awareness and healthy boundaries. 9. Financial stress: - Patient is overwhelmed with financial matters related to her 's and is unsure about her financial situation. - Plan: Encourage patient to seek assistance from a dental financial coordinator or support group to help manage financial stress. Monitor patient's progress in addressing financial concerns during follow-up appointments. 10. Social support and reintegration: - Patient desires to reengage with society, find a job, and contribute to her community. - Plan: Encourage patient to continue seeking social support from friends and family, attend support groups, and explore job opportunities that align with her interests and values. Monitor patient's progress in reintegration during counseling sessions. 06/08/2024 Major depressive disorder, recurrent severe without psychotic features (ICD-10 - F33.2) 1. Post-Traumatic Stress Disorder (PTSD) - Continue current medications: alprazolam 0.5 mg, dextroamphetamine-a mphetamine salt combo 20 mg, bupropion 150 mg - Start buspirone as prescribed for anxiety - Refer to short-term therapy with Jessica for three months until she can find a long-term therapist - Consider dialectical behavioral therapy (DBT) as a treatment option - Schedule follow-up appointments with Jessica and the clinician as needed 2. Generalized Anxiety Disorder - Continue alprazolam 0.5 mg as needed - Start buspirone as prescribed for anxiety - Engage in therapy with Jessica to address anxiety symptoms and triggers - Monitor her response to therapy and adjust the treatment plan as needed 3. Attention Deficit Hyperactivity Disorder (ADHD) - Continue dextroamphetamine-a mphetamine salt combo 20 mg - Reevaluate the diagnosis in the context of PTSD and consider adjusting the treatment plan accordingly after further assessment 4. Major Depressive Disorder - Continue bupropion 150 mg - Engage in therapy with Jessica to address depressive symptoms and triggers - Monitor her response to therapy and adjust the treatment plan as needed 1. Post-Traumatic Stress Disorder (PTSD) - Continue current medications: alprazolam 0.5 mg, dextroamphetamine-a mphetamine salt combo 20 mg, bupropion 150 mg - Start buspirone as prescribed for anxiety - Refer to short-term therapy with Jessica for three months until she can find a long-term therapist - Consider dialectical behavioral therapy (DBT) as a treatment option - Schedule follow-up appointments with Jessica and the clinician as needed 2. Generalized Anxiety Disorder - Continue alprazolam 0.5 mg as needed - Start buspirone as prescribed for anxiety - Engage in therapy with Jessica to address anxiety symptoms and triggers - Monitor her response to therapy and adjust the treatment plan as needed 3. Attention Deficit Hyperactivity Disorder (ADHD) - Continue dextroamphetamine-a mphetamine salt combo 20 mg - Reevaluate the diagnosis in the context of PTSD and consider adjusting the treatment plan accordingly after further assessment 4. Major Depressive Disorder - Continue bupropion 150 mg - Engage in therapy with Jessica to address depressive symptoms and triggers - Monitor her response to therapy and adjust the treatment plan as needed 06/08/2024 Other Learning About Depression Screening material was printed 1. Post-Traumatic Stress Disorder (PTSD) - Continue current medications: alprazolam 0.5 mg, dextroamphetamine-a mphetamine salt combo 20 mg, bupropion 150 mg - Start buspirone as prescribed for anxiety - Refer to short-term therapy with Jessica for three months until she can find a long-term therapist - Consider dialectical behavioral therapy (DBT) as a treatment option - Schedule follow-up appointments with Jessica and the clinician as needed 2. Generalized Anxiety Disorder - Continue alprazolam 0.5 mg as needed - Start buspirone as prescribed for anxiety - Engage in therapy with Jessica to address anxiety symptoms and triggers - Monitor her response to therapy and adjust the treatment plan as needed 3. Attention Deficit Hyperactivity Disorder (ADHD) - Continue dextroamphetamine-a mphetamine salt combo 20 mg - Reevaluate the diagnosis in the context of PTSD and consider adjusting the treatment plan accordingly after further assessment 4. Major Depressive Disorder - Continue bupropion 150 mg - Engage in therapy with Jessica to address depressive symptoms and triggers - Monitor her response to therapy and adjust the treatment plan as needed 1. Post-Traumatic Stress Disorder (PTSD) - Continue current medications: alprazolam 0.5 mg, dextroamphetamine-a mphetamine salt combo 20 mg, bupropion 150 mg - Start buspirone as prescribed for anxiety - Refer to short-term therapy with Jessica for three months until she can find a long-term therapist - Consider dialectical behavioral therapy (DBT) as a treatment option - Schedule follow-up appointments with Jessica and the clinician as needed 2. Generalized Anxiety Disorder - Continue alprazolam 0.5 mg as needed - Start buspirone as prescribed for anxiety - Engage in therapy with Jessica to address anxiety symptoms and triggers - Monitor her response to therapy and adjust the treatment plan as needed 3. Attention Deficit Hyperactivity Disorder (ADHD) - Continue dextroamphetamine-a mphetamine salt combo 20 mg - Reevaluate the diagnosis in the context of PTSD and consider adjusting the treatment plan accordingly after further assessment 4. Major Depressive Disorder - Continue bupropion 150 mg - Engage in therapy with Jessica to address depressive symptoms and triggers - Monitor her response to therapy and adjust the treatment plan as needed Plan Of Treatment Pending Test Test Name Order Date UDT 06/08/2024 Insurance Providers Payer Name Payer Address Payer Phone Subscriber Number Group Number Insured Name Patient Relationship to Insured Coverage Start Date Coverage End Date Rubina JIMMY [address] [place] [address] [id number] Chantal Farrell Self - patient is the insured Medical (General) History Medical History History ICD Code Past Psychiatric History: An xiety Disorder,Panic Disorder,PTSD,Major Depressive Episode abdominal aortic aneurysm: No atrial fibrillation: No chronic fatigue syndrome: No essential tremor: No hyperlipidemia: No hypertension: No Parkinson's disease: No restless leg syndrome: No stroke: No subdural hematoma: No type 1 diabetes mellitus: No type 2 diabetes mellitus: No vitamin B12 deficiency: No vitamin D deficiency: No lupus nephritis Surgical History Surgery Date(Month/Year) hysterectomy section appendectomy
--- OUTSIDE RECORDS SUMMARY | 2025-03-21 10:33 | XMS_ITS | Clinical Summary ---
Author Organization [facility] Address [address] [place] [address] Care Team Providers Care Take Away Attendant Name Role Phone Michael Rider MD Primary Care Provider [phone] Source Comments [facility],non-owned Affiliates and Associated Physician Practices is amultiple site organization consisting of ambulatory clinics and hospital sitesin [place], [place], [place] and [place]. This disclosure is being madepursuant to the Care Everywhere program and may not contain all information available regarding this patient. Last updated 18.[facility] Allergies No known active allergies Medications * Be aware that medications may not be up to date on this document. Alwaysverify current medications with the patient. norgestimate-eth inyl [...] on file Legal Sex Female 2:37 PM PHOSPHORIC ACID SUPERVISOR Gender Identity Not on file Sexual Orientation Not on file Last Filed Vital Signs Vital Sign Reading Time Taken Comments Blood Pressure 136/86 01/05/2020 5:51 PM PHOSPHORIC ACID SUPERVISOR Pulse 108 01/05/2020 5:51 PM PHOSPHORIC ACID SUPERVISOR Temperature 36.4 C (97.5 F) 01/05/2020 5:51 PM PHOSPHORIC ACID SUPERVISOR Respiratory Rate 17 01/05/2020 5:51 PM PHOSPHORIC ACID SUPERVISOR Oxygen Saturation 99% 01/05/2020 5:51 PM PHOSPHORIC ACID SUPERVISOR Inhaled Oxygen Concentration - - Weight 63.5 kg (140 lb) 01/05/2020 5:51 PM PHOSPHORIC ACID SUPERVISOR Height 165.1 cm (5' 5 ) 01/05/2020 5:51 PM PHOSPHORIC ACID SUPERVISOR Body Mass Index 23.3 01/05/2020 5:51 PM PHOSPHORIC ACID SUPERVISOR Plan of Treatment Health Maintenance Due Date [...] age to complete this topic Insurance [facility] SELF PAY NO INSURANCE Member Subscriber Plan / Payer (Ef fective for All Dates) Name:Chantal Ferrell Member ID:Not on file Relation to Subscriber:Not on file Name:CHANTAL FERRELL Subscriber ID:Not on file (Home) Address: [address] [place] [id number] Payer ID:Not on file Group ID:Not on file Type:Self Pay Address: [place], [place] [employer] Care Teams Take Away Attendant Relationship Specialty Start Date End Date Michael Rider MD [address] [place] [address] PCP - General Family Medicine 11/11/16
--- OUTSIDE RECORDS SUMMARY | 2025-03-21 10:33 | XMS_ITS ---
Author Organization [facility] Address [address] [place] [address] Care Team Providers Care Ice Delivery Driver Name Role Phone Armani Mitchell MD Primary Care Provider Chanda De La Fuente [phone] Allergies Allergen (clinical drug ingredient) Drug/Non Drug Allergy documented on EMR Reaction Allergy Type Onset Date Status Thimerosal Unknown Drug Allergy 03/05/2023 Activ e REASON FOR VISIT follow up, connective tissue disease Medications Medication SIG (Take, Route, Frequency, Duration) Notes Start Date End Date Status Hydroxychloroquine Sulfate 2 00 MG Take 1 tablet by mouth once daily. for 90 Active ALPRAZolam 0.5 MG take 1 tablet (0.5 m g) by oral route 3 times per day Oral 3 Active buPROPion HCl ER (XL) 150 MG take 1 tabl et (150 mg) by oral route once daily Oral 1 Active Adderall 20 MG 1 tablet Orally Twic e a day Active busPIRone HCl 15 MG TAKE 1 TABLET BY TWICE DAILY Oral for 30 Days Active Vital Signs Temperature 98.2 degrees Fahrenheit 07/28/20 24 Blood pressure systolic 118 mm Hg 07/28/20 24 Blood pressure diastolic 80 mm Hg 024 Heart Rate 93 /min 07/28/2024 Height 64 in 07/28/2024 Weight 123.1 lbs 07/28/2024 BMI 21.13 kg/m2 07/28/2024 Oximetry 99 % 07/28/2024 Encounters Encounter Location Date Provider Diagnosis [facility] [address] [place] [address] 07/28/2024 Chanda Markham 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 ; Raynaud's phenomenon without gangrene I73.00 ; High risk medication use Z79.899 and Lumbar back pain M54.50 Assessments Encounter Date Diagnosis (ICD Code) Assessment Notes Treatment Notes Treatment Clinical Notes Section Notes 07/28/2024 Undifferentiated connective tissue disease (ICD-10 - M35.9) mildly symptomatic, continue plaquenil 200mg/day, advised about eye exam, return in 6 months 07/28/2024 Raynaud's phenomenon without gangrene (ICD-10 - I73.00) mildly symptomatic, continue plaquenil 200mg/day, advised about eye exam, return in 6 months 07/28/2024 High risk medication use (ICD-10 - Z79.899) mildly symptomatic, continue plaquenil 200mg/day, advised about eye exam, return in 6 months 07/28/2024 Lumbar back pain (ICD-10 - M54.50) mildly symptomatic, continue plaquenil 200mg/day, advised about eye exam, return in 6 months Plan Of Treatment Next Appt Details Follow Up: 6 Months, Reason: Progress Notes * BEBA ChantalDOB:1980 (43 yo F)Acc No.[id number]:07/28/2024 Progress Notes Patient: Chantal GUARDADO Provider: Willis MARKHAM MD :1980 A ge:43 Y S ex:Female Date:07/28/2024 Address:[facility] [address] [facility] Pcp:Armani Mitchell MD Subjective: * Chief Complaints: * F ollow upConnective tissue disease * HPI: G eneral Follow up: under a lot of stress, , lost insurance, on plaquenil 200mg/day, off Cymbalta, on buspar and wellbutrin, stopped lyrica on her own, low back and R hip aching, has some rash on left hand failed mobic flu like symptoms since 09/2023. [...] 6-10, leukocyte esterase 2+01/30/2023, BLANCHE 1:320 (homogeneous), anti-DNA/chromatin/SM/PROCESS STEWARD/SSA/SSB/SCL70 (-), C3 and C4 normal, RF/CCP (-), ACL (-), B2GP1 Abs (-), CBC normal except for platelets of 407, B21 631, TPO (-) ROS: no oral ulcers, ?nasal ulcers, +dry mouth, no dry eyes, +rashes on L hand, +facial redness, no photosensitivity, +hair loss, +Raynaud's eye exam: due aunt: connective tissue disease. * ROS: G [...] :: Tobacco :: Never. * Medications: T akingAdderall 20 MG Tablet 1 tablet Orally Twice a day buPROPion HCl ER (XL) 150 MG Tablet Extended Release 24 Hour take 1 tablet (150 mg) by oral route once daily Oral 1 ALPRAZolam 0.5 MG Tablet take 1 tablet (0.5 mg) by oral route 3 times per day Oral 3 Hydroxychloroquine Sulfate 200 MG Tablet Take 1 tablet by mouth once daily. busPIRone HCl 15 MG Tablet TAKE 1 TABLET BY MOUTH TWICE DAILY Oral Taking Adderall 20 MG Tablet 1 tablet Orally Twice a day Taking buPROPion HCl ER (XL) 150 MG Tablet Extended Release 24 Hour take 1 tablet (150 mg) by oral route once daily Oral 1 Taking ALPRAZolam 0.5 MG Tablet take 1 tablet (0.5 mg) by oral route 3 times per day Oral 3 Taking Hydroxychloroquine Sulfate 200 MG Tablet Take 1 tablet by mouth once daily. Taking busPIRone HCl 15 MG Tablet TAKE 1 TABLET BY MOUTH TWICE DAILY Oral DiscontinuedPregabalin 75 mg capsule take 1 capsule (75 mg) by oral route 2 times per day oral 2 DULoxetine HCl 60 MG Capsule Delayed Release Particles take 1 capsule (60 mg) by oral route once daily Oral 1 amphetamine 1.25 mg/mL suspen, IR - ER, biphasic 24hr take 20 milliliters (25 mg) by oral route once daily in the morning oral 1 , Notes to Pharmacist: *Reorder from [facility] for eRx and Interaction Alerts*Medication List reviewed and reconciled with the patientDiscontinued Pregabalin 75 mg capsule take 1 capsule (75 mg) by oral route 2 times per day oral 2 Discontinued DULoxetine HCl 60 MG Capsule Delayed Release Particles take 1 capsule (60 mg) by oral route once daily Oral 1 Discontinued amphetamine 1.25 mg/mL suspen, IR - ER, biphasic 24hr take 20 milliliters (25 mg) by oral route once daily in the morning oral 1 , Notes to Pharmacist: *Reorder from [facility] for eRx and Interaction Alerts*Medication List reviewed and reconciled with the patient * Allergies: T himerosal: Allergy - Onset Date 03/05/2023no[Allergies Verified] Objective: * Vitals: B P:118/80mm Hg, HR:93/min, Temp:98.2F, Oxygen sat %:99%, Wt:123.1lbs, Ht:64in, BMI:21.13Index. * Examination: G eneral Examination: General appearance: a lert, well-nourished and in no acute distress. Head: n ormocephalic, atraumatic. Eyes: n ormal. Skin: m ild eczematous rash on left hand. Lungs: r espiratory effort normal. N eurology: Speech: n ormal. P sychiatry: Affect / mood: a ppropriate. R heumatology: J OINT EXAM: R sacral area tender, R hip tender laterally, R knee mildly tender. Assessment: * Assessment: 1. U ndifferentiated connective tissue disease - M35.9 (Primary) 2 . R aynaud's phenomenon without gangrene - I73.00 3 . H igh risk medication use - Z79.899 4 . L umbar back pain - M54.50 mildly symptomatic, continue plaquenil 200mg/day, advised about eye exam, return in 6 months Plan: * Treatment: * Procedure Codes: * Follow Up: 6 Months * Billing Information: * Visit Code: 76338 Office Visit, Est Pt., Level 4. * Procedure Codes: * Sign off status: Completed true * Provider: Willis MARKHAM MD Date: 0 07/28/2024 Generated for Gavin prescott/Justus/Fidelina on: 0 03/21/2025 10:33 AM CDT History and Physical Notes * HPI (History of Present Illness) Category Sub-Category Detail Notes Category Not es General Follow up under a lot of stress, , lost insurance, on plaquenil 200mg/day, off Cymbalta, on buspar and wellbutrin, stopped lyrica on her own, low back and R hip aching, has some rash on left hand failed mobic flu like symptoms since 09/2023. [...] 6-10, leukocyte esterase 2+01/30/2023, BLANCHE 1:320 (homogeneous), anti-DNA/chromatin/SM/PROCESS STEWARD/SSA/SS B/SCL70 (-), C3 and C4 normal, RF/CCP (-), ACL (-), B2GP1 Abs (-), CBC normal except for platelets of 407, B21 631, TPO (-) ROS: no oral ulcers, ?nasal ulcers, +dry mouth, no dry eyes, +rashes on L hand, +facial redness, no photosensitivity, +hair loss, +Raynaud's eye exam: due aunt: connective tissue disease Examination Category Sub-Category Detail Notes Category Not es Rheumatology JOINT EXAM: R sacral area tender, R hip tender laterally, R knee mildly tender Neurology Speech: normal Psychiatry Affect / mood: appropriate General Examination General appearance: alert, w ell-nourished and in no acute distress Head: normocephalic, atrau matic Eyes: normal Lungs: respiratory effort n ormal Skin: mild eczematous rash on left hand
--- OUTSIDE RECORDS SUMMARY | 2025-03-21 10:33 | XMS_ITS | Patient Health Record ---
Author Organization [facility] caleb Address [address] [facility] [address] [place] [address] Care Team Providers Care Government Employee Name Role Phone Armani Mitchell MD Primary Care Provider Chanda De La Fuente [phone] Allergies Allergen (clinical drug ingredient) Drug/Non Drug Allergy documented on EMR Reaction Allergy Type Onset Date Status Thimerosal Unknown Drug Allergy 03/05/2023 Activ e Reason For Referral No Information Medications Medication SIG (Take, Route, Frequency, Duration) Notes Start Date End Date Status ALPRAZolam 0.5 MG take 1 tablet (0.5 m g) by oral route 3 times per day Oral 3 Active busPIRone HCl 15 MG TAKE 1 TABLET BY SONIA TH TWICE DAILY Oral for 30 Days Active Hydroxychloroquine Sulfate 2 00 MG Take 1 tablet by mouth once daily. for 90 Active buPROPion HCl ER (XL) 150 MG take 1 tabl et (150 mg) by oral route once daily Oral 1 Active Adderall 20 MG 1 tablet Orally Twic e a day Active Vital Signs Heart Rate 93 /min 07/28/2024 Temperature 98.2 degrees Fahrenheit 07/28/2024 Blood pressure diastolic 80 mm Hg 07/28/2024 Oximetry 99 % 07/28/2024 Height 64 in 07/28/2024 Blood pressure systolic 118 mm Hg 07/28/2024 Weight 123.1 lbs 07/28/2024 BMI 21.13 kg/m2 07/28/2024 Encounters Encounter Location Date Provider Diagnosis [facility] [address] [facility] [address] [place] [address] 04/27/2024 Chanda Brown 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 ; Raynaud's phenomenon without gangrene I73.00 ; High risk medication use Z79.899 and Lumbar back pain M54.50 [facility] [address] [place] [address] 07/28/2024 Chanda Brown 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 ; Raynaud's phenomenon without gangrene I73.00 ; High risk medication use Z79.899 and Lumbar back pain M54.50 Assessments Encounter Date Diagnosis (ICD Code) Assessment Notes Treatment Notes Treatment Clinical Notes Section Notes 04/27/2024 Undifferentiated connective tissue disease (ICD-10 - M35.9) symptomatic, increase plaquenil to 400mg/day, continue cymbalta, consider restarting lyrica, return in 3 to 4 months 07/28/2024 Undifferentiated connective tissue disease (ICD-10 - M35.9) mildly symptomatic, continue plaquenil 200mg/day, advised about eye exam, return in 6 months 07/28/2024 Raynaud's phenomenon without gangrene (ICD-10 - I73.00) mildly symptomatic, continue plaquenil 200mg/day, advised about eye exam, return in 6 months 04/27/2024 Raynaud's phenomenon without gangrene (ICD-10 - I73.00) symptomatic, increase plaquenil to 400mg/day, continue cymbalta, consider restarting lyrica, return in 3 to 4 months 07/28/2024 High risk medication use (ICD-10 - Z79.899) mildly symptomatic, continue plaquenil 200mg/day, advised about eye exam, return in 6 months 04/27/2024 High risk medication use (ICD-10 - Z79.899) symptomatic, increase plaquenil to 400mg/day, continue cymbalta, consider restarting lyrica, return in 3 to 4 months 04/27/2024 Lumbar back pain (ICD-10 - M54.50) symptomatic, increase plaquenil to 400mg/day, continue cymbalta, consider restarting lyrica, return in 3 to 4 months 07/28/2024 Lumbar back pain (ICD-10 - M54.50) mildly symptomatic, continue plaquenil 200mg/day, advised about eye exam, return in 6 months Plan Of Treatment No Information Medical (General) History Medical History History ICD Code ADD (attention deficit disorder); BLANCHE positive; Anxiety; Microscopic hematuria; Surgical History Surgery Date(Month/Year) Cholecstectomy; 2023-03-05
--- OUTSIDE RECORDS SUMMARY | 2025-03-21 10:33 | XMS_ITS ---
Author Organization [facility] Address [address] [place] [address] Care Team Providers Care Wrecker Driver Name Role Phone Emma Persaud Primary Care Provider Isa Lopez Unavailable [phone] REASON FOR VISIT On CRU- New Eval Social History Sex Assigned At : Social History Observation Description Sex Assigned At Female Encounters Encounter Location Date Provider Diagnosis [facility] [address] [place] [address] 12/02/2024 Isa Lopez Plan Of Treatment No Information Progress Notes * Chantal FERRELLDOB:1980 ([age] yo F)Acc No.[id number]:12/02/2024 UNLOCKED PROGRESS NOTE Patient: Chantal MORIN Provider: LINDY Epps, COFFEE TASTER, PMHNP-BC :1980 A ge:44 Y S ex:Female Date:12/02/2024 Phone: Address:[address] [place], [place] [id number] Pcp:Emma Persaud Subjective: * Chief Complaints: * 1 . On CRU- New Eval. * Medical History: Objective: * Vitals: Assessment: Plan: * Treatment: * * Electronic signature of Jasen Lopez on 03/21/2025 at 10:33 AM CDT Sign off status: Pending * Provider: Kwaku Lopez MSN, COFFEE TASTER, PMHNP-BC Date: 0 12/02/2024 Generated for Printing/Faxing/eTransmitting on: 0 03/21/2025 10:33 AM CDT
--- OUTSIDE RECORDS SUMMARY | 2025-03-21 10:33 | XMS_ITS | Patient Health Record ---
Author Organization [facility] Address [address] [place] [address] Care Team Providers Care Radiation Technician Name Role Phone Emma Persaud Primary Care Provider Ias Lopez Unavailable [phone] Allergies Allergen (clinical drug ingredient) Drug/Non Drug Allergy documented on EMR Reaction Allergy Type Onset Date Status thimerosal Thimerosal rash Drug Allergy Activ e Results Component Value Reference Range Notes QuantiFERON-TB Gold Plus ([id number]) Reviewed date:12/05/2024 04:57:08 PM Interpretation:Negative Performing Lab:[facility] [place], [address] [facility], [place], Phone - [phone], Director - Cecelia Notes/Report: QuantiFERON Incubation Incubation performed. QuantiFERON-TB Gold Plus Negative Negative No response to M tuberculosis antigens detected. Infection with M tuberculosis is unlikely, but high risk individuals should be considered for additional testing (ATS/IDSA/CDC Clinical Practice Guidelines, 2017). The reference range is an Antigen minus Nil result of <0.35 IU/mL. Chemiluminescence immunoassay methodology QuantiFERON Criteria QuantiFERON-TB Gold Plus is a qualitative indirect test for M tuberculosis infection (including disease) and is intended for use in conjunction with risk assessment, radiography, and other medical and diagnostic evaluations. The QuantiFERON-TB Gold Plus result is determined by subtracting the Nil value from either TB antigen (Ag) value. The Mitogen tube serves as a control for the test. QuantiFERON TB1 Ag Value 0.01 QuantiFERON TB2 Ag Value 0.01 QuantiFERON Nil Value 0.01 QuantiFERON Mitogen Value >10.00 Reason For Referral No Information Medications Medication SIG (Take, Route, Frequency, Duration) Notes Start Date End Date Status DULoxetine HCl 60 MG TAKE 1 CAPSULE BY M OUTH EVERY DAY Oral for 90 Days Not-Taking ALPRAZolam 0.5 MG Oral for 30 Days Active Daily-Karlos - Oral for 14 Days Active hydrOXYzine Pamoate 25 MG Oral for 5 Days Active Amphetamine-Dextroampheta mine 20 MG Oral for 30 Days Active Amphetamine-Dextroampheta mine 20 MG TAKE 1 TABLET BY MOUTH TWICE DAILY BEFORE BREAKFAST AND AT NOON Oral for 30 Days Active buPROPion HCl ER (XL) 150 MG TAKE 1 TABLET BY MOUTH EVERY MORNING Oral for 30 Days Active Escitalopram Oxalate 10 MG TAKE 1 TABLET BY MOUTH EVERY DAY Oral for 30 Days Not-Taking OLANZapine 10 MG TAKE 1 TABLET BY SONIA TH EVERY DAY Oral for 30 Days Not-Taking Pantoprazole Sodium 40 MG TAKE 1 TABLET BY MOUTH EVERY DAY Oral for 30 Days Not-Taking Social History Sex Assigned At : Social History Observation Description Sex Assigned At Female Problems Problem Type SNOMED Code ICD Code Onset Dates Problem Status W/U Status Risk Notes Problem Nicotine dependence, unspecified, uncomplicated (F17.200) Active confirmed Vital Signs Heart Rate 96 /min 11/30/2024 Blood pressure diastolic 78 mm Hg 11/30/2024 Oximetry 99 % 11/30/2024 Height 64 in 11/30/2024 Blood pressure systolic 120 mm Hg 11/30/2024 Weight 116 lbs 11/30/2024 BMI 19.91 kg/m2 11/30/2024 Encounters Encounter Location Date Provider Diagnosis [facility] [address] [place] [address] [place] [address] 11/30/2024 Emma Persaud Adult general medica l exam Z00.00 and Nicotine dependence, unspecified, uncomplicated F17.[address] [place] [address] 11/26/2024 Emma Persaud Assessments Encounter Date Diagnosis (ICD Code) Assessment Notes Treatment Notes Treatment Clinical Notes Section Notes 11/30/2024 Adult general medical exam (ICD-10 - Z00.00) 11/30/2024 Nicotine dependence, unspecified, uncomplicated (ICD-10 - F17.200) 11/30/2024 Other Continue treatment as recommended by [place] staff. Encouraged patient to obtain routine medical care with patient's own primary care provider or establish as a patient at [facility] if no current primary care provider. Plan Of Treatment No Information Insurance Providers Payer Name Payer Address Payer Phone Subscriber Number Group Number Insured Name Patient Relationship to Insured Coverage Start Date Coverage End Date [facility] [address] [facility] [address] [place] [address] [id number] Chantal Ferrell Self - patient is the insured 5 Medical (General) History Surgical History Surgery Date(Month/Year) hysterectomy 2023 gallbladder out 2 c -section
[2025-03-27 00:14] LABS: Pancreatic Elastase, Stool >800 mcg/g (>200)
== END 2025-03-21 09:58 | disposition home or self-care (01) ==
PROVIDERS: PCP Emergency Medicine; Visit Provider Internal Medicine Gastroenterology
DX: K58.9 Irritable bowel syndrome, unspecified (principal)
CPT/HCPCS: 82653; 87177; 87209

== ENCOUNTER 2025-04-20 09:39 | Outpatient (CLI) | payer OTHER, SELFPAY ==
--- NOTE | ~2025-04-20 | DEXA_ITS ---
Bone Density Report Name: HANH YODER Age: 44 Sex: Female Ethnicity: White Date of : 1980 Indication: postmenopausal; hysterectomy; Referring Provider: SABRINA ALVAREZ Study: Bone densitometry was performed. Exam Date: April 20, 2025 Accession number: [id number] Bone Density: Region BMD T-score Z-score Classification AP Spine(L1-L4) 0.894 -1.4 -1.0 Osteopenia Femoral Neck (Left) 0.679 -1.5 -1.2 Osteopenia Total Hip (Left) 0.909 -0.3 0.0 Normal Femoral Neck (Right) 0.727 -1.1 -0.7 Osteopenia Total Hip (Right) 0.869 -0.6 -0.3 Normal Total Hip Mean 0.889 -0.5 -0.2 Normal World Health Organization criteria for BMD impression classify patients as: Normal (T-score at or above -1.0), Osteopenia (T-score between -1.0 and -2.5), or Osteoporosis (T-score at or below -2.5). 10-year Fracture Risk(1): Major Osteoporotic Fracture 2.5% Hip Fracture 0.3% Reported Risk Factors: [place] (), Neck BMD=0.679, BMI=20.6 (1) FRAX(R) Version 3.08. Fracture probability calculated for an untreated patient. Fracture probability may be lower if the patient has received treatment. Clinical Information Provided by Patient: Has the following medical conditions: Hysterectomy, lupus Patient maximum height was 64.0 Menopause Age: 41 No regular weight bearing exercise Drinks caffeinated beverages Onset of menses at age 14 Number of children 2 Impression: The patient has low bone mass, based on the Left Femoral Neck T-score. The patient has an estimated ten-year risk of hip fracture of 0.3% and an estimated ten-year risk of major fracture of 2.5%, based on the WHO FRAX algorithm. Discussion: BONE DENSITY IS LOW AT ONE OR MORE SKELETAL SITES. This patient's lowest T-score is low at one or more skeletal sites. It meets the World Health Organization's (WHO) criteria for ?low bone mass? (T-score between -1.0 and -2.5). The patient's 10-year risk of fracture as calculated by FRAX is less than the threshold where pharmacological therapy is recommended by the National Osteoporosis Foundation (NOF). However, all treatment decisions require clinical judgment and consideration of individual patient factors, including patient preferences, comorbidities, previous drug use, risk factors not captured in the FRAX model (e.g., frailty, falls, vitamin D deficiency, increased bone turnover, interval significant decline in bone density) and possible under or overestimation of fracture risk by FRAX. The patient should follow a healthful lifestyle (good nutrition with adequate calcium and vitamin D, and appropriate weight-bearing exercise). Follow-Up: Consider repeating this study in 2 to 3 years to reassess this patient's status, or sooner if there is some new clinical indication. Reported by: NORMA on 04/20/2025 10:20:00 AM. Reviewed, dictated and finalized at location A.
--- OUTSIDE RECORDS SUMMARY | 2025-04-20 10:37 | XMS_ITS | Patient Health Record ---
Author Organization [facility] Address [address] [place] [address] Care Team Providers Care Tools Administrator Name Role Phone HungEmma Primary Care Provider [phone] Isa Lopez Unavailable [phone] Allergies Allergen (clinical drug ingredient) Drug/Non Drug Allergy documented on EMR Reaction Allergy Type Onset Date Status thimerosal Thimerosal rash Drug Allergy Activ e Results Component Value Reference Range Notes QuantiFERON-TB Gold Plus ([id number]) Reviewed date:12/05/2024 04:57:08 PM Interpretation:Negative Performing Lab:[facility] [place], [address], [place], Phone - [phone], Director - Cecelia Notes/Report: QuantiFERON Incubation Incubation [...] Vital Signs Heart Rate 96 /min 11/30/2024 Oximetry 99 % 11/30/2024 Blood pressure diastolic 78 mm Hg 11/30/2024 Height 64 in 11/30/2024 Blood pressure systolic 120 mm Hg 11/30/2024 Weight 116 lbs 11/30/2024 BMI 19.91 kg/m2 11/30/2024 Encounters Encounter Location Date Provider Diagnosis [facility] [address] [place] [address] [place] [address] 11/30/2024 Emma Persaud Adult general medica l exam Z00.00 and Nicotine dependence, unspecified, uncomplicated F17.[address] [place] [address] 11/26/2024 Emma Persaud Assessments Encounter Date Diagnosis (ICD Code) Assessment Notes Treatment Notes Treatment Clinical Notes Section Notes 11/30/2024 Adult general medical exam (ICD-10 - Z00.00) 11/30/2024 Nicotine dependence, unspecified, uncomplicated (ICD-10 - F17.200) 11/30/2024 Other Continue treatment as recommended by [facility] staff. Encouraged patient to obtain routine medical care with patient's own primary care provider or establish as a patient at [facility] if no current primary care provider. Plan Of Treatment No Information Insurance Providers Payer Name Payer Address Payer Phone Subscriber Number Group Number Insured Name Patient Relationship to Insured Coverage Start Date Coverage End Date [facility] [address] [facility] [address] [place] [address] [id number] Chantal Ferrell Self - patient is the insured 5 Medical (General) History Surgical History Surgery Date(Month/Year) hysterectomy 2023 gallbladder out 2 c -section
--- OUTSIDE RECORDS SUMMARY | 2025-04-20 10:37 | XMS_ITS | Patient Health Record ---
Author Organization [facility] Address [address] [facility] [address] [place] [address] Care Team Providers Care Precision Lens Generator Name Role Phone Armani Mitchell MD Primary Care Provider Anthony Baldwin Unavailable [phone] Jessica Jackson Unavailable [phone] Allergies Allergen (clinical drug ingredient) Drug/Non Drug [...] Problem Status W/U Status Risk Notes Problem 52678448 Major depressive disorder, recurrent severe without psychotic features (F33.2) Active confirmed Problem 37889816 AJAY (generalized anxiety disorder) (F41.1) Active confirmed Problem 69752832 PTSD (post-traumatic stress disorder) (F43.10) Active confirmed Problem 23577562 Attention defici t hyperactivity disorder (ADHD), predominantly inattentive type (F90.0) Active confirmed Vital Signs Heart Rate 102 /min 06/08/2024 Blood pressure diastolic 97 mm Hg 06/08/2024 Weight-kg 55.34 kg 06/08/2024 Blood pressure systolic 116 mm Hg 06/08/2024 Weight 122.0 lbs 06/08/2024 Encounters Encounter Location Date Provider Diagnosis [facility] [address] [address] 06/08/2024 Anthony [place] PTSD (post-traumatic stress disorder) F43.10 ; AJAY (generalized anxiety disorder) F41.1 ; Attention deficit hyperactivity disorder (ADHD), predominantly inattentive type F90.0 and Major depressive disorder, recurrent severe without psychotic features F33.2 [facility] [address] [address] 06/09/2024 Jessica Hinder[place] PTSD (post-traumatic stress disorder) F43.10 [employer] [facility] [address] [address] 06/21/2024 Jessica Hinderliter Major depressive disorder, recurrent severe without psychotic features F33.2 ; AJAY (generalized anxiety disorder) F41.1 and PTSD (post-traumatic stress disorder) F43.10 [employer] [facility], [facility] [address] [address] 06/29/2024 Jessica Hinderliter PTSD (post-traumatic stress disorder) F43.10 ; AJAY (generalized anxiety disorder) F41.1 and Major depressive disorder, recurrent severe without psychotic features F33.2 [facility] [address] [address] 06/08/20[facility] Encounter Date Diagnosis (ICD Code) Assessment [...] that could address her needs, preferably in [place] or nearby. Discussed [place] as a [...] in her marriage. Plan: Refer to social service worker for assistance with employment, transportation, and potential [...] treatment option - Schedule follow-up appointments with Jesscia and the clinician as needed 2. Generalized [...] Encourage patient to seek assistance from a financial institution manager or support group to help manage financial [...] Encourage patient to seek assistance from a financial institution manager or support group to help manage financial [...] Encourage patient to seek assistance from a financial institution manager or support group to help manage financial [...] Date Coverage End Date [employer] [address] [place] [address] [id number] Chantal Farrell Self - patient is the [...]
--- OUTSIDE RECORDS SUMMARY | 2025-04-20 10:37 | XMS_ITS ---
Author Organization [facility] Address [address] [place] [address] Care Team Providers Care Rhinologist Name Role Phone Emma Persaud Primary Care Provider Isa Lopez Unavailable [phone] REASON FOR VISIT On CRU- New Eval Social History Sex Assigned At : Social History Observation Description Sex Assigned At Female Encounters Encounter Location Date Provider Diagnosis [facility] [address] [place] [address] 12/02/2024 Isa Lopez Plan Of Treatment No Information Progress Notes * Chantal FERRELLDOB:1980 ([age] yo F)Acc No.[id number]:12/02/2024 UNLOCKED PROGRESS NOTE Patient: Chantal MORIN Provider: LINDY Epps, LINUX UNIX ADMINISTRATOR, PMHNP-BC :1980 A ge:44 Y S ex:Female Date:12/02/2024 Phone: Address:[address] [place], [place] [phone] Pcp:Emma Persaud Subjective: * Chief Complaints: * 1 . On CRU- New Eval. * Medical History: Objective: * Vitals: Assessment: Plan: * Treatment: * * Electronic signature of Jasen Lopez on 04/20/2025 at 10:37 AM CDT Sign off status: Pending * Provider: Kwaku Lopez MSN, LINUX UNIX ADMINISTRATOR, PMHNP-BC Date: 0 12/02/2024 Generated for Printing/Faxing/eTransmitting on: 0 04/20/2025 10:37 AM CDT
--- OUTSIDE RECORDS SUMMARY | 2025-04-20 10:37 | XMS_ITS | Patient Health Record ---
Author Organization [facility] Address [address] [facility] [place] [address] Care Team Providers Care Assistant Administrator Name Role Phone Armani Mitchell MD Primary Care Provider Chanda De La Fuente [phone] Allergies Allergen (clinical drug ingredient) Drug/Non Drug [...] 07/28/2024 Encounters Encounter Location Date Provider Diagnosis [facility] [address] [address] [place] [address] 04/27/2024 Chanda Brown 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 ; Raynaud's phenomenon without gangrene I73.00 ; High risk medication use Z79.899 and Lumbar back pain M54.50 [facility] [address] [facility] [facility] [address] [place] [address] 07/28/2024 Chanda Brown Undifferentiated connective tissue disease [...]
== END 2025-04-20 09:40 | disposition home or self-care (01) ==
LOC: ANHIMG 09:41
PROVIDERS: PCP Emergency Medicine; Visit Provider Emergency Medicine
DX: M85.89 Other specified disorders of bone density and structure, multiple sites (principal); Z78.0 Asymptomatic menopausal state
CPT/HCPCS: 77080